=== PATIENT | male | born 1940 | race Caucasian/White ===

== ENCOUNTER 2017-09-22 09:10 | Inpatient (IN) | payer OTHER, MEDICARE ==
[2017-09-22] VITALS (8 sets, daily range): BP systolic 146–157; BP diastolic 85–102; PULSE 91–139; RESP 16–20; TEMP 97.8–99.7; O2SAT 96–99
[~2017-09-22] VITALS: Ht 177.8 cm; Wt 94.6 kg
[~2017-09-22 09:10] MED LIST: CALC250 PO; DOCU1CAP39 PO; NORC7.5T PO; TAB-TAB
[2017-09-22] MEDS ORDERED: SODIUM CHLOR 0.9% 1000 ML INJ 1,000 ML IV ONE (09:17)
--- NOTE | 2017-09-22 09:20 | PD ---
HPI Chief Complaint: Stroke alert Time Seen by Provider: 09:17 Travel History International Travel<30 days: No Contact w/Intl Traveler<30days: No History of Present Illness HPI 77-year-old male patient with history of alcohol use, presents to the ER brought in by EMS, stroke alert called in the field, apparently he had gone off of the sofa about 45 minutes prior to arrival, fall back down, and was unresponsive, and then had seizure-like activity according to family, and when EMS got there he was disoriented, not moving the right side, not directable, in atrial fibrillation. No history of previous stroke or atrial fibrillation in the past. He was not improving significantly on initial evaluation and they had called stroke alert due to right sided weakness initially and slowness to improve on scene. Modifying Factors: None Associated Signs & Symptoms: Stroke alert, right-sided weakness, altered mental status, questionable seizure-like activity Risk Factors: Alcohol use, elderly PFSH Past Medical History Cancer: No Cardiovascular Problems: No Endocrine: No Genitourinary: No Immune Disorder: No Musculoskeletal: No Neurologic: No Psychiatric: No Reproductive: No Respiratory: No Social History Alcohol Use: Yes ([place] [employer] DAILY) Tobacco Use: No Substance Use: No Allergies-Medications (Allergen,Severity, Reaction): Coded Allergies: codeine (Unverified Allergy, Mild, n/v, 01/30/17) Reported Meds & Prescriptions Reported Meds & Active Scripts Active Reported Oscal-D 250 MG /125 UNITS Tab (Calcium/Vitamin D) 250 Mg/125 Units Tab 1 Tab PO TID [place] 7.5/325 (Hydrocodone-Acetaminophen) 7.5 Mg/325 Mg Tab 1 Tab PO Q4-6 HOURS PRN Colace 100 Mg Cap (Docusate Sodium) 100 Mg Cap 100 Mg PO BID Multivitamin (Multivitamins) 1 Tab Tab Review of Systems ROS Limitations: Altered Mental Status Physical Exam Narrative GENERAL: Well-developed elderly white male patient currently in moderate distress. Arousable, disoriented, GCS 13 to 14. SKIN: Focused skin assessment warm/dry. HEAD: Atraumatic. Normocephalic. EYES: Pupils equal and round. No scleral icterus. No injection or drainage. ENT: No nasal bleeding or discharge. Mucous membranes pink and moist. Bruising of the tongue in a tooth like formation, suspected tongue biting. NECK: Trachea midline. No JVD. CARDIOVASCULAR: Regular rate and rhythm. No murmur appreciated. RESPIRATORY: No accessory muscle use. Clear to auscultation. Breath sounds equal bilaterally. GASTROINTESTINAL: Abdomen soft, non-tender, nondistended. Hepatic and splenic margins not palpable. MUSCULOSKELETAL: No obvious deformities. No clubbing. No cyanosis. No edema. Tenderness on palpation of the right elbow area. NEUROLOGICAL: Awake and disoriented. Face is symmetrical, slurred speech, not moving the right arm, but able to follow some directions, extraocular movements are intact, crossing his legs when asked to lift up his leg. PSYCHIATRIC: Disoriented; insight and judgment poor. Data Data Last Documented VS Vital Signs Date Time Temp Pulse Resp B/P (MAP) Pulse Ox O2 Delivery O2 Flow Rate FiO2 09/22/17 10:26 97 09/22/17 10:26 104 151/98 (115) 09/22/17 09:20 Room Air 09/22/17 09:20 2.00 09/22/17 09:13 98.3 19 Orders Orders Diet Npo (09/22/17 Breakfast) Activity Bed Rest (09/22/17 ) Electrocardiogram (09/22/17 ) I-Stat Profile (09/22/17 09:17) Prothrombin Time / Inr (Pt) (09/22/17 09:17) Act Partial Throm Time (Ptt) (09/22/17 09:17) Complete Blood Count With Diff (09/22/17 09:17) Fibrinogen (09/22/17 09:17) Creatine Kinase (Cpk) (09/22/17 09:17) Troponin I (09/22/17 09:17) Ua Includes Microscopic (09/22/17 09:17) Drug Screen, Random Urine (09/22/17 09:17) Type And Screen (09/22/17 09:17) Ct Brain W/O Iv Contrast(Rout) (09/22/17 ) Chest, Single Ap (09/22/17 ) Cta Brain W Iv Contrast W 3d (09/22/17 09:17) Cta Neck W Iv Contrast W 3d (09/22/17 09:17) Consult Neurology (09/22/17 ) Blood Glucose (09/22/17 09:17) Ecg Monitoring (09/22/17 09:17) Neuro Checks Q2HX12,Q4H (09/22/17 09:17) Nursing Bedside Swallow Assess .ONCE (09/22/17 09:17) Iv Access Insert/Monitor (09/22/17:17) NPO (09/22/17:17) Oximetry (09/22/17 09:17) Resp Oxygen Nc Stroke (09/22/17 ) Sodium Chlor 0.9% 1000 Ml Inj (Ns 1000 M (09/22/17 09:17) Cath For Specimen (09/22/17:17) Elbow, Limited (Ap&Lat) (09/22/17 09:24) Forearm (2vws) (09/22/17 09:24) Humerus (Min 2vws) (09/22/17 09:24) Aspirin Supp (Aspirin Supp) (09/22/17 09:45) Diltiazem Inj (Cardizem Inj) (09/22/17 09:45) Sodium Chloride 0.9% Flush (Ns Flush) (09/22/17 09:45) W[place]gren Sedimentation Rate (09/22/17 09:36) Rapid Plasma Regin (Rpr) W Ttr (09/22/17 09:36) Wilma Screen (09/22/17 09:36) Thyroid Stimulating Hormone (09/22/17 09:36) Free Thyroxine (T4) (09/22/17 09:36) Vitamin B1 (Thiamine) (09/22/17 09:36) Vitamin B12 (09/22/17 09:36) Urinalysis - C+S If Indicated (09/22/17 09:36) Methylmalonic Acid (Mma) (09/22/17 09:36) Ast (Sgot) (09/22/17 09:36) Alt (Sgpt) (09/22/17 09:36) Mri Brain W&W/O Contrast (09/22/17 09:36) Eeg Study (09/22/17 09:36) Echo 2d Comp With Doppler (09/22/17 09:36) Filling Hauler Weaving / Telemetry TAN.Q8H (09/22/17 09:36) ^ Seizure Precautions (09/22/17 09:36) Troponin I (09/22/17 09:36) [place] (09/22/17 09:36) Aspirin Ec (Ecotrin Ec) (09/22/17 11:00) Sodium Chlor 0.9% 1000 Ml Inj (Ns 1000 M (09/22/17 09:36) Lipid Profile (09/22/17 09:36) Consult Pt Eval & Treat (09/22/17 09:36) Scd&Teds Bilateral/Knee High TAN.QSHIFT (09/22/17 09:36) (Hub Use Only)Inp Phy Cons/Ref (09/22/17 ) Admit Order (Ed Use Only) (09/22/17 10:49) Labs Laboratory Tests Test 09/22/17 09:20 White Blood Count 9.4 TH/MM3 Red Blood Count 3.99 MIL/MM3 Hemoglobin 14.7 GM/DL Bedside Hemoglobin 14.6 G/DL Hematocrit 42.7 % Bedside Hematocrit 43.0 % Mean Corpuscular Volume 106.9 FL Mean Corpuscular Hemoglobin 36.7 PG Mean Corpuscular Hemoglobin Concent 34.4 % Red Cell Distribution Width 13.4 % Platelet Count 123 TH/MM3 Mean Platelet Volume 10.2 FL Neutrophils (%) (Auto) 81.5 % Lymphocytes (%) (Auto) 11.0 % Monocytes (%) (Auto) 7.1 % Eosinophils (%) (Auto) 0.0 % Basophils (%) (Auto) 0.4 % Neutrophils # (Auto) 7.7 TH/MM3 Lymphocytes # (Auto) 1.0 TH/MM3 Monocytes # (Auto) 0.7 TH/MM3 Eosinophils # (Auto) 0.0 TH/MM3 Basophils # (Auto) 0.0 TH/MM3 CBC Comment DIFF FINAL Differential Comment Prothrombin Time 10.7 SEC Prothromb Time International Ratio 1.1 RATIO Activated Partial Thromboplast Time 19.9 SEC Fibrinogen 229 mg/dL Bedside Sodium 136 MMOL/L Bedside Potassium 3.3 MMOL/L Bedside Chloride 97 MMOL/L Bedside Blood Urea Nitrogen 4 MG/DL Bedside Creatinine 0.8 MG/DL Bedside Glucose 206 MG/DL Total Creatine Kinase 212 U/L Troponin I LESS THAN 0.02 NG/ML MDM Medical Screen Exam Complete: Yes Emergency Medical Condition: Yes Medical Record Reviewed: Yes Differential Diagnosis CVA versus seizure/postictal versus metabolic issues versus ICH Narrative Course Patient was seen in the ER by Dr. Steiner before he went to CAT scan, and he thinks that this could have been a seizure rather than a stroke. Patient is in A. fib with RVR and he has suggested that we start the patient on heparin if the CAT scan is otherwise negative. In addition, symptoms are subsiding slowly in the ER and he is able to do more in the ER that he was with EMS. For patient 's new onset A. fib with RVR, had initially ordered Cardizem but was notified by nurse that we did not have supplies of Cardizem in the hospital, and metoprolol was instead ordered for this patient. At this point, case had been discussed with Dr. Rhoades to be admitted for further treatment. Stroke Alert NIHSS NIH Stroke Scale Result: 7 NIHSS Time Completed: 09:33 Thrombolytic Contraindications Contraindications Comment: Suspected seizure rather than a stroke. Diagnosis Diagnosis: Primary Impression: Atrial fibrillation with RVR Additional Impressions: New onset seizure Right humeral fracture Admitting Physician Requests: Admit Jenae Galeano MD Sep 22, 2017 09:20
[2017-09-22] MEDS ORDERED: SODIUM CHLOR 0.9% 1000 ML INJ 1,000 ML IV SCH (09:36)
[2017-09-22] MEDS ORDERED: DILTIAZEM HCL 25 MG/5 ML VIAL IV PUSH ONE (09:45)
[2017-09-22] MEDS ORDERED: ASPIRIN 300 MG SUPP RECTAL ONE (09:45)
[2017-09-22] MEDS ORDERED: SODIUM CHLORIDE 0.9% FLUSH 10 ML FLUSH IV FLUSH PRN ×2 (09:45→13:00)
[2017-09-22 09:46] LABS: AUTOMATED NEUTROPHIL # 7.7 TH/MM3 (1.8-7.7); BASOPHIL % 0.4 % (0.0-2.0); HEMATOCRIT 42.7 % (39.0-51.0); HEMOGLOBIN 14.7 GM/DL (13.0-17.0); MEAN CELL VOLUME 106.9 FL (80.0-100.0); MEAN CORPUSCULAR HEMOGLOBIN 36.7 PG (27.0-34.0); MEAN CORPUSCULAR HGB CONC 34.4 % (32.0-36.0); MEAN PLATELET VOLUME 10.2 FL (7.0-11.0); MONO % 7.1 % (0.0-8.0); MONOCYTE # 0.7 TH/MM3 (0-0.9); NEUT % 81.5 % (16.0-70.0); PLATELET COUNT 123 TH/MM3 (150-450); RED BLOOD COUNT 3.99 MIL/MM3 (4.50-5.90); RED CELL DISTRIBUTION WIDTH 13.4 % (11.6-17.2); WHITE BLOOD COUNT 9.4 TH/MM3 (4.0-11.0)
--- NOTE | 2017-09-22 09:48 | RADRPT ---
EXAM DATE/TIME: 09/22/2017 09:37 [facility] COMPARISON: No previous studies available for comparison. INDICATIONS : Stroke alert. Altered mental status. RADIATION DOSE: 56.35 CTDIvol (mGy) This report was called by Dr. Sandoval to Dr. Emanuel at 9: 44 AM MEDICAL HISTORY : Non-responsive. SURGICAL HISTORY : Non-responsive. ENCOUNTER: Initial ACUITY: 1 day PAIN SCALE: Non-responsive LOCATION: Bilateral head TECHNIQUE: Multiple contiguous axial images were obtained of the head. Using automated exposure control and adj ustment of the mA and/or kV according to patient size, radiation dose was kept as low as reasonably a chievable to obtain optimal diagnostic quality images. DICOM format image data is available electro nically for review and comparison. FINDINGS: CEREBRUM: There is diffuse white matter atrophic change. The ventricles demonstrate no evidence of effacement o r abnormal dilation.. No evidence of midline shift, mass lesion, hemorrhage or acute infarction. No extra-axial fluid collections are seen. POSTERIOR FOSSA: The cerebellum and brainstem are intact. The 4th ventricle is midline. The cerebellopontine angle i s unremarkable. EXTRACRANIAL: The visualized portion of the orbits is intact. SKULL: The calvaria is intact. No evidence of skull fracture. CONCLUSION: Diffuse white matter atrophic changes, somewhat greater than expected for the patient's age. No evide nce of acute abnormality.. Stefania Sandoval MD on September 22, 2017 at 9:42 Board Certified Radiologist. This report was verified electronically.
[2017-09-22 10:00] LABS: INTERNATIONAL NORMALIZED RATIO 1.1 RATIO; PROTHROMBIN TIME - PATIENT 10.7 SEC (9.8-11.6)
[2017-09-22 10:04] LABS: TROPONIN I LESS THAN 0.02 NG/ML (0.02-0.05)
--- NOTE | 2017-09-22 10:08 | MB ---
cc: Winston Steiner MD DATE: 09/22/2017 HISTORY OF PRESENT ILLNESS: This is a 77-year-old man who in 2013 had a left olecranon fracture. He has a history of traumatic head injury, hernia repair, hypercholesterolemia, atrial fibrillation, does not take any medications, history of alcohol use in the past, had a glass of whiskey this morning, fell off the sofa and was unresponsive, some seizure-like activity according to family although I am unable to get in touch with them on the phone now. He does not take any blood thinners, is on the atrial fibrillation. A stroke alert was called as I thought maybe he was not moving the right side well, although he is holding his right arm, appears to be in a lot of pain in the right elbow. REVIEW OF SYSTEMS: Unable to be obtained. ALLERGIES: HE IS ALLERGIC TO CODEINE. MEDICATIONS: He takes a multivitamin, colace, [place] and Os-Binu. SOCIAL HISTORY: He is a drinker, not a smoker. Lives with his . PHYSICAL EXAMINATION: VITAL SIGNS: Pulse is 139, blood pressure 157/102, afebrile, O2 saturations 97%. NECK: There were no carotid bruits. HEART: Regular rhythm. I did not tachycardic or murmur. NEUROLOGIC: The pupils are equal. Visual gray are full. He can count fingers bilaterally and there is no visual neglect. Face is symmetric with normal sensation. Tongue was midline, but he did bite his tongue, has a lot of bites and abrasions on the tongue, which are acute. He moves his left upper and bilateral lower extremity normally. He can make a good fist on the right upper extremity, but he has got a lot of pain in the right elbow, so unable to test it any further. DTRs are trace throughout. Toes were downgoing bilaterally. Pinprick is intact in all 4 extremities. He may be primarily German speaking. He could repeat for me and name my glasses and stick out his tongue and follow commands. His NIH stroke scale is 0 at this time. LABORATORY DATA: In 2013, he had a low white count to 3.4, hematocrit was 31. Current labs are pending. Coags have been normal in 2013. His creatinine and BMP here as I-stat is normal. Alcohol level is 406 in 2012. IMAGING STUDIES: His x-rays are still pending. He had a CT scan of his cervical spine in 2012 that showed some DJD C1-C2, C5-C6, C6-C7. No spinal stenosis. IMPRESSION AND PLAN: Probably a seizure, but his EKG does show atrial fibrillation, probably needs to be anticoagulated. We will check an EEG. MRI of the brain. For now, we will keep him on the stroke alert protocol and get a CT and CTA. There appeared to be some postictal state, according to the government contracts manager. MD JAVIER Carrillo/RODRI , 09:47 AM , 10:07 AM
--- NOTE | 2017-09-22 10:55 | RADRPT ---
EXAM DATE/TIME: 09/22/2017 10:16 [facility] COMPARISON: No previous studies available for comparison. INDICATIONS : Stroke alert. MEDICAL HISTORY : Non-responsive. SURGICAL HISTORY : Non-responsive. ENCOUNTER: Initial ACUITY: 1 day PAIN SCORE: 0/10 LOCATION: Bilateral chest FINDINGS: The lungs are hypoinflated but clear. Heart size is normal. Moderate tortuosity of the thoracic aorta . Pulmonary vasculature is normal. Osseous structures are intact. CONCLUSION: No acute disease. Stefania Sandoval MD on September 22, 2017 at 10:52 Board Certified Radiologist. This report was verified electronically.
[2017-09-22] MEDS ORDERED: ONDANSETRON HCL 4 MG/2 ML VIAL ONE (10:57)
--- NOTE | 2017-09-22 10:57 | RADRPT ---
EXAM DATE/TIME: 09/22/2017 10:33 [facility] COMPARISON: CHEST SINGLE AP, September 22, 2017, 10:16. INDICATIONS : Trauma. MEDICAL HISTORY : Non-responsive. SURGICAL HISTORY : Non-responsive. ENCOUNTER: Initial ACUITY: 1 day PAIN SCORE: Non-responsive. LOCATION: Right Humerus. FINDINGS: There appears to be a nondisplaced fracture involving the right humeral head at the level of the grea ter trochanter. The humeral head appears appropriately positioned with respect to the adjacent glenoi d. Degenerative changes identified within the imaged elbow. Bones are osteopenic. No additional fract ures are visualized. CONCLUSION: Nondisplaced fracture of the right humeral head at the level of the greater trochanter.. Stefania Sandoval MD on September 22, 2017 at 10:53 Board Certified Radiologist. This report was verified electronically.
[2017-09-22] MEDS ORDERED: ASPIRIN EC 325 MG TABEC PO SCH (11:00)
[2017-09-22] MEDS ORDERED: METOPROLOL TARTRATE 5 MG/5 ML VIAL IV PUSH ONE (11:00)
--- NOTE | 2017-09-22 11:10 | RADRPT ---
EXAM DATE/TIME: 09/22/2017 10:20 [facility] COMPARISON: No previous studies available for comparison. INDICATIONS : Trauma. MEDICAL HISTORY : Non-responsive. SURGICAL HISTORY : Non-responsive. ENCOUNTER: Initial ACUITY: 1 day PAIN SCORE: 10/10 LOCATION: Right Elbow. FINDINGS: 2 views of the elbow demonstrate degenerative change. No evidence of fracture. There is a well-cortic ated osseous structure identified along the volar aspect of the elbow joint consistent with a loose b vincenzo. The bones are osteopenic. Soft tissues are grossly unremarkable. CONCLUSION: No evidence of fracture. Stefania Sandoval MD on September 22, 2017 at 11:06 Board Certified Radiologist. This report was verified electronically.
--- NOTE | 2017-09-22 11:11 | HHI.HP ---
[facility] Unknown Admission Diagnosis New onset A. fib with RVR/stroke alert Diagnoses: Travel History International Travel<30 Days: No Contact w/Intl Traveler <30 Da: No Traveled to Known Affected Are: No History of Present Illness 77 year old right-handed male with history of alcohol abuse presented to the ER via EMS after his found him unresponsive on the living room floor this morning. History is limited from the patient as he is a poor historian and doesn't recall today's events. Spoke with , Brenda Samaniego, on the phone who was able to provide additional history. Per his , she was in her bedroom and recalls he was talking but couldn't understand what he was saying. She states when she went out into the living room after about thirty minutes he was on the ground unresponsive and was bleeding from his mouth. She states he was not incontinent of urine or feces. He came to when EMS arrived but she states he was very confused and would not answer questions or talk. He opened his eyes but did not follow commands. Per EMS, the patient did not move the right side of his body and therefore a stroke alert was called in the field. His states she did not witness any convulsions as she did not see the actual event. She is unaware if the patient has ever had a seizure but the patient informs me that he has had one a "few years ago" that he believes was related to drinking too much alcohol. He states he drinks "two cups" of whiskey a day as well as a "couple beers." He denies abruptly discontinuing but his thinks he wasn't drinking as much in the past two days. She also reports that the patient had two episodes of nonbloody emesis this morning prior to the events but has otherwise been in his normal state of health. He states he hasn' t seen a doctor in several years and denies being diagnosed with any medical problems. He does not take any medications on a regular basis. He denies headache, slurred speech, diplopia, loss of balance, dizziness, paresthesias, weakness, or difficulty reading. His only complaint is pain in his right elbow that he noticed in the hospital. He does not recall falling or injuring it. Pain is exacerbated with any movement of his right arm and with direct pressure over his elbow. He also endorses feeling shaky. On admission, he was found to be in atrial fibrillation with RVR and states he has never had any cardiac conditions. He denies chest pain, shortness of breath, or palpitations. He reports in the past he has had blood in his stool when he drinks heavily; he cannot recall ever vomiting blood. He has never had a colonoscopy. Review of Systems ROS Limitations: Poor Historian Constitutional: DENIES: Fever, Chills, Dizziness Eyes: DENIES: Blurred vision, Diplopia, Vision loss Ears, nose, mouth, throat: DENIES: Hearing loss, Throat pain Respiratory: DENIES: Cough, Wheezing, Shortness of breath Cardiovascular: DENIES: Chest pain, Palpitations, Syncope, Lower Extremity Edema Gastrointestinal: COMPLAINS OF: Bloody stools, Vomiting, DENIES: Abdominal pain , Black stools, Nausea Genitourinary: DENIES: Dysuria Musculoskeletal: DENIES: Neck pain Integumentary: DENIES: Rash Hematologic/lymphatic: DENIES: Bruising Neurologic: COMPLAINS OF: Seizures, DENIES: Abnormal gait, Headache, Localized weakness, Paresthesias Psychiatric: COMPLAINS OF: Confusion Past Family Social History Past Medical History Alcohol abuse Past Surgical History Bilateral inguinal hernia L olecranon ORIF Reported Medications Multivitamin Allergies: Coded Allergies: codeine (Unverified Allergy, Mild, n/v, 01/30/17) Active Ordered Medications Aspirin (Aspirin Supp) 300 mg ONCE ONCE RECTAL Last administered on 09/22/17at 11 :05; Admin Dose 300 MG; Start 09/22/17 at 09:45; Stop 09/22/17 at 09:46; Status DC Aspirin (Ecotrin Ec) 325 mg DAILY PO; Start 09/22/17 at 11:00 Diltiazem HCl (Cardizem Inj) 22 mg BOLUS ONCE IV PUSH; Start 09/22/17 at 09:45; Stop 09/22/17 at 10:55; Status DC Enoxaparin Sodium (Lovenox Inj) 40 mg Q24H SQ; Start 09/22/17 at 16:00 Flumazenil (Romazicon Inj) 0.2 mg Q1M PRN IV PUSH; Start 09/22/17 at 11:15 Lorazepam (Ativan Inj) 1 mg Q4H PRN IV PUSH; Start 09/22/17 at 11:15 Lorazepam (Ativan Inj) 2 mg Q15M PRN IV PUSH; Start 09/22/17 at 11:15 Lorazepam (Ativan Inj) 2 mg Q1H PRN IV PUSH; Start 09/22/17 at 11:15 Lorazepam (Ativan Inj) 2 mg Q2H PRN IV PUSH; Start 09/22/17 at 11:15 Lorazepam (Ativan) 1 mg Q4H PRN PO; Start 09/22/17 at 11:15 Lorazepam (Ativan) 2 mg Q2H PRN PO; Start 09/22/17 at 11:15 Metoprolol Tartrate (Lopressor Inj) 5 mg ONCE ONCE IV PUSH Last administered on 09/22/17at 11:07; Admin Dose 5 MG; Start 09/22/17 at 11:00; Stop 09/22/17 at 11: 01; Status DC Multivitamins 10 ml/Folic Acid 1 mg/Sodium Chloride 510.2 ml @ 125 mls/hr Q24H IV; Start 09/22/17 at 14:00; Stop 09/27/17 at 13:59 Ondansetron HCl (Zofran Inj) 4 mg STK-MED ONCE .ROUTE Last administered on at 11:06; Admin Dose 4 MG; Start 09/22/17 at 10:57; Stop 09/22/17 at 10:58; Status DC Sodium Chloride 1,000 ml @ 70 mls/hr [id number] IV; Start 09/22/17 at 12:00 Sodium Chloride 1,000 ml @ 70 mls/hr [id number] ONCE IV Last administered on at 11:05; Admin Dose 70 MLS/HR; Start 09/22/17 at 09:17; Stop 09/22/17 at 11:24 ; Status DC Sodium Chloride 1,000 ml @ 75 mls/hr [id number] IV; Start 09/22/17 at 09:36; Stop 09/22/17 at 11:23; Status DC Sodium Chloride (NS Flush) 2 ml UNSCH PRN IV FLUSH Last administered on at 11:09; Admin Dose 2 ML; Start 09/22/17 at 09:45 Thiamine HCl 100 mg/Sodium Chloride 101 ml @ 100 mls/hr Q24H IV; Start 09/22/17 at 13:00; Stop 09/25/17 at 12:59 Family History Parents at old age, unknown causes Social History Lives with his and son From [facility] Retired Denies tobacco or illicit drug use Daily EtOH use - reports "two cups" of whiskey a day and a "couple beers" Physical Exam Vital Signs Vital Signs Date Time Temp Pulse Resp B/P (MAP) Pulse Ox O2 Delivery O2 Flow Rate FiO2 09/22/17 10:26 97 09/22/17 10:26 104 151/98 (115) 09/22/17 09:20 100 Room Air 09/22/17 09:20 97 2.00 09/22/17 09:20 97 Nasal Cannula 2.00 09/22/17 09:20 139 157/102 (120) 97 Nasal Cannula 09/22/17 09:13 98.3 108 19 157/102 (120) Physical Exam GENERAL: Well-nourished, well-developed male supine in bed in no apparent distress. SKIN: Two ~1cm, fleshy pedunculated skin lesions on face. Lower lip and chin with john discoloration and thickened skin. HEENT: Atraumatic. Normocephalic. No temporal or scalp tenderness. Pupils about 2-3 mm bilaterally and reactive to light. EOMI without nystagmus. No scleral icterus. Mild bilateral conjunctival injection. Nose without bleeding, purulent drainage or septal hematoma. Throat without erythema, tonsillar hypertrophy or exudate. Poor dentition. Multiple abrasions and bites on tongue with blood in the mouth. Uvula midline. Airway patent. NECK: Trachea midline. No JVD or lymphadenopathy. Supple, nontender, no meningeal signs. CARDIOVASCULAR: Tachycardic with an irregularly irregular rhythm. No appreciable murmurs. 2+ distal pulses. RESPIRATORY: Clear to auscultation. Breath sounds equal bilaterally. No wheezes , rales, or rhonchi. GASTROINTESTINAL: Abdomen soft, nontender, nondistended. No hepatosplenomegaly or palpable masses. No guarding. MUSCULOSKELETAL: Extremities without clubbing, cyanosis, or edema. Guarding RUE. R elbow with no gross abnormalities; olecranon tender to palpation. No tenderness of shoulder, arm, or forearm. Bilateral venous stasis changes in his feet and ankles. No calf tenderness. Negative Homans sign bilaterally. NEUROLOGICAL: Awake and alert. Cranial nerves II through XII intact. No facial droop and sensation intact. Motor and sensory grossly within normal limits with the exception of his RUE which appears to be limited secondary to pain though encoding clerk strength is strong. B/L LE strength symmetric. Negative Babinski bilaterally. Normal speech. Laboratory Laboratory Tests Test 09/22/17 09:20 White Blood Count 9.4 Red Blood Count 3.99 Hemoglobin 14.7 Bedside Hemoglobin 14.6 Hematocrit 42.7 Bedside Hematocrit 43.0 Mean Corpuscular Volume 106.9 Mean Corpuscular Hemoglobin 36.7 Mean Corpuscular Hemoglobin Concent 34.4 Red Cell Distribution Width 13.4 Platelet Count 123 Mean Platelet Volume 10.2 Neutrophils (%) (Auto) 81.5 Lymphocytes (%) (Auto) 11.0 Monocytes (%) (Auto) 7.1 Eosinophils (%) (Auto) 0.0 Basophils (%) (Auto) 0.4 Neutrophils # (Auto) 7.7 Lymphocytes # (Auto) 1.0 Monocytes # (Auto) 0.7 Eosinophils # (Auto) 0.0 Basophils # (Auto) 0.0 CBC Comment DIFF FINAL Differential Comment Prothrombin Time 10.7 Prothromb Time International Ratio 1.1 Activated Partial Thromboplast Time 19.9 Fibrinogen 229 Bedside Sodium 136 Bedside Potassium 3.3 Bedside Chloride 97 Bedside Blood Urea Nitrogen 4 Bedside Creatinine 0.8 Bedside Glucose 206 Total Creatine Kinase 212 Troponin I LESS THAN 0.02 Result Diagram: 09/22/17919 Imaging Radius/Ulna X-Ray 09/22/17923 Signed Impressions: Service Date/Time: Friday, September 22, 2017 10:23 - CONCLUSION: Severe degenerative changes and osteopenia. No visualized fracture.. Stefania Sandoval MD Humerus X-Ray 09/22/17923 Signed Impressions: Service Date/Time: Friday, September 22, 2017 10:33 - CONCLUSION: Nondisplaced fracture of the right humeral head at the level of the greater trochanter.. Stefania Sandoval MD Elbow X-Ray 09/22/17923 Signed Impressions: Service Date/Time: Friday, September 22, 2017 10:20 - CONCLUSION: No evidence of fracture. Stefania Sandoval MD Head CT 09/22/17 0000 Signed Impressions: Service Date/Time: Friday, September 22, 2017 09:37 - CONCLUSION: Diffuse white matter atrophic changes, somewhat greater than expected for the patient's age. No evidence of acute abnormality.. Stefania Sandoval MD Chest X-Ray 09/22/17 0000 Signed Impressions: Service Date/Time: Friday, September 22, 2017 10:16 - CONCLUSION: No acute disease. Stefania Sandoval MD Caprini VTE Risk Assessment Caprini VTE Risk Assessment: Mod/High Risk (score >= 2) Caprini Risk Assessment Model Point Value = 1 Point Value = 2 Point Value = 3 Point Value = 5 Age 41-60 Minor surgery BMI > 25 kg/m2 Swollen legs Varicose veins or History of unexplained or recurrent spontaneous Oral contraceptives or hormone replacement Sepsis (< 1 month) Serious lung disease, including pneumonia (< 1 month) Abnormal pulmonary function Acute myocardial infarction Congestive heart failure (< 1 month) History of inflammatory bowel disease Medical patient at bed rest Age 61-74 Arthroscopic surgery Major open surgery (> 45 min) Laparoscopic surgery (> 45 min) Malignancy Confined to bed (> 72 hours) Immobilizing plaster cast Central venous access Age >= 75 History of VTE Family history of VTE Factor V Leiden Prothrombin [id number] Lupus anticoagulant Anticardiolipin antibodies Elevated serum homocysteine Heparin-induced thrombocytopenia Other congenital or acquired thrombophilia Stroke (< 1 month) Elective arthroplasty Hip, pelvis, or leg fracture Acute spinal cord injury (< 1 month) Prophylaxis Regimen Total Risk Factor Score Risk Level Prophylaxis Regimen 0-1 Low Early ambulation 2 Moderate Order ONE of the following: *Sequential Compression Device (SCD) *Heparin 5000 units SQ BID 3-4 Higher Order ONE of the following medications: *Heparin 5000 units SQ TID *Enoxaparin/Lovenox 40 mg SQ daily (WT < 150 kg, CrCl > 30 mL/min) *Enoxaparin/Lovenox 30 mg SQ daily (WT < 150 kg, CrCl > 10-29 mL/min) *Enoxaparin/Lovenox 30 mg SQ BID (WT < 150 kg, CrCl > 30 mL/min) AND/OR *Sequential Compression Device (SCD) 5 or more Highest Order ONE of the following medications: *Heparin 5000 units SQ TID (Preferred with Epidurals) *Enoxaparin/Lovenox 40 mg SQ daily (WT < 150 kg, CrCl > 30 mL/min) *Enoxaparin/Lovenox 30 mg SQ daily (WT < 150 kg, CrCl > 10-29 mL/min) *Enoxaparin/Lovenox 30 mg SQ BID (WT < 150 kg, CrCl > 30 mL/min) AND *Sequential Compression Device (SCD) Assessment and Plan Problem List: (1) Altered mental status ICD Code: R41.82 - Altered mental status, unspecified Status: Acute (2) Atrial fibrillation with RVR ICD Code: I48.91 - Unspecified atrial fibrillation Status: Acute (3) Right humeral fracture ICD Code: S42.301A - Unspecified fracture of shaft of humerus, right arm, initial encounter for closed fracture Status: Acute (4) Alcohol abuse ICD Code: F10.10 - Alcohol abuse, uncomplicated Status: Chronic Assessment and Plan 77 YOWM w/ history of alcohol abuse brought to the ER via EMS after being found down in his living room by his . Patient post-ictal on EMS arrival and not spontaneously moving right side therefore a stroke alert was called on the field. On arrival, he was found to be in atrial fibrillation with RVR. 1. Altered mental status - CT with white matter atrophy - Seizure vs. CVA/TIA vs. metabolic encephalopathy vs. infection - Presentation consistent with a seizure given post-ictal state and tongue abrasions/bites; ?EtOH seizure - Neurology consulted, appreciate eval and reccs - Resume stroke protocol neuro checks, HOB flat, permissive HTN, serial troponins - PT/ST/OT - CTA/MRI/EEG ordered - Seizure precautions 2. Atrial fibrillation with RVR - Reviewed EKG - TSH WNL and no severe electrolyte derangement - Check magnesium - Hemodynamically stable - Given metoprolol IV x 1 in the ED - Start PO metoprolol - Consult cardiology since new onset - Order 2D echo - CHADSVASc score 2; patient an anticoagulation candidate but possible history of GI bleed? - Telemetry 3. R nondisplaced humeral head fracture - Imaging reviewed by me and confirmed with radiology report - [facility] for sling - Ice - Pain control - Likely nonoperative but will consult orthopedic surgery for eval 4. Alcohol abuse - Check EtOH level and LFTs - Macrocytosis and thrombocytopenia consistent with chronic EtOH use - [facility] protocol - Rally pack - Seizure precautions 5. Hypertension - Start metoprolol 25 mg BID - Vasotec PRN 6. Hyperglycemia - Check A1c DVT prophylaxis: Lovenox SQ Code Status FULL Discussed Condition With Patient and his Physician Certification 2 Midnight Certification Type: Admission for Inpatient Services Order for Inpatient Services The services are ordered in accordance with Medicare regulations or non- Medicare payer requirements, as applicable. In the case of services not specified as inpatient-only, they are appropriately provided as inpatient services in accordance with the 2-midnight benchmark. Estimated LOS (days): 3 3 days is the estimated time the patient will need to remain in the hospital, assuming treatment plan goals are met and no additional complications. Post-Hospital Plan: Not yet determined Sowmya Grimaldo MD Sep 22, 2017 11:11
[2017-09-22] MEDS ORDERED: LORazepam 2 MG/ML VIAL IV PUSH PRN ×5 (11:15→13:45)
[2017-09-22] MEDS ORDERED: LORazepam 2 MG TAB PO PRN (11:15)
[2017-09-22] MEDS ORDERED: FLUMAZENIL 0.5 MG/5 ML VIAL IV PUSH PRN (11:15)
[2017-09-22] MEDS ORDERED: LORazepam 1 MG TAB PO PRN (11:15)
--- NOTE | 2017-09-22 11:18 | RADRPT ---
EXAM DATE/TIME: 09/22/2017 10:23 [facility] COMPARISON: No previous studies available for comparison. INDICATIONS : Trauma. MEDICAL HISTORY : Non-responsive. SURGICAL HISTORY : Non-responsive. ENCOUNTER: Initial ACUITY: 1 day PAIN SCORE: Non-responsive. LOCATION: Right Forearm. FINDINGS: The osseous structures demonstrate significant osteopenia. There are severe degenerative changes iden tified within the elbow with a calcified loose body identified in the volar aspect of the joint. No v isualized fracture. Soft tissues are significant for atherosclerosis. No joint effusion is visualized . CONCLUSION: Severe degenerative changes and osteopenia. No visualized fracture.. Stefania Sandoval MD on September 22, 2017 at 11:14 Board Certified Radiologist. This report was verified electronically.
[2017-09-22] MEDS ORDERED: GADODIAMIDE PF 287 MG/ML 20 ML VIAL (for RAD MRI) IVCONTRAST ONE (12:46)
--- NOTE | 2017-09-22 12:55 | RADRPT ---
EXAM DATE/TIME: 09/22/2017 12:01 [facility] COMPARISON: No previous studies available for comparison. INDICATIONS : Stroke alert, right-sided weakness, altered mental status. CONTRAST: 17 cc Omniscan (gadodiamide) IV MEDICAL HISTORY : Hypercholesterolemia. SURGICAL HISTORY : Inguinal hernia repair. ORIF elbow. ENCOUNTER: Initial ACUITY: 1 day PAIN SCORE: 0/10 LOCATION: cranial TECHNIQUE: Multiplanar, multisequence MRI of the brain was performed both prior to and following the administrat ion of paramagnetic contrast. FINDINGS: CEREBRUM: There is diffuse extensive white matter atrophic changes. The ventricles are normal in size given the degree of white matter atrophy. WHITE MATTER: Mild periventricular white matter hyperintensity. POSTERIOR FOSSA: The cerebellum and brainstem are intact. The 4th ventricle is midline. The cerebellopontine angle is unremarkable. The cerebellar tonsils are normal in position. DIFFUSION IMAGING: No focal areas of restricted diffusion are seen. No evidence of acute infarction. EXTRACRANIAL: The visualized portions of the orbits and paranasal sinuses are unremarkable. POST-CONTRAST: No abnormal areas of parenchymal or dural enhancement. No evidence of blood-brain barrier breakdown. CONCLUSION: No evidence of acute intracranial abnormality. There is extensive white matter atrophic change, great er than expected for the patient's age.. Stefania Sandoval MD on September 22, 2017 at 12:50 Board Certified Radiologist. This report was verified electronically.
[2017-09-22] MEDS ORDERED: BISACODYL 10 MG SUPP RECTAL PRN (13:00)
[2017-09-22] MEDS ORDERED: SENNOSIDES 8.6 MG TAB PO PRN (13:00)
[2017-09-22] MEDS ORDERED: ONDANSETRON HCL 4 MG/2 ML VIAL IVP PRN (13:00)
[2017-09-22] MEDS ORDERED: MORPHINE SULFATE 2 MG/ML SYRINGE IV PUSH PRN (13:00)
[2017-09-22] MEDS ORDERED: NALOXONE HCL 0.4 MG/ML AMP IV PUSH PRN (13:00)
[2017-09-22] MEDS ORDERED: LACTULOSE SYRUP 20 GM/30 ML CUP PO PRN (13:00)
[2017-09-22] MEDS ORDERED: MAGNESIUM HYDROXIDE SUSP 30 ML CUP PO PRN (13:00)
[2017-09-22] MEDS ORDERED: ENALAPRILAT 1.25 MG/ML VIAL IV PUSH PRN (13:00)
[2017-09-22] MEDS ORDERED: ACETAMINOPHEN 325 MG TAB PO PRN (13:00)
[2017-09-22] MEDS: THIAMINE INJ 100 MG in SODIUM CHLORIDE 0.9% INJ 100 ML IV SCH (13:12)
[2017-09-22] MEDS: MULTIVITAMIN INJ 10 ML, FOLIC ACID INJ 1 MG in SODIUM CHLORID 0.9% 500 ML INJ 500 ML IV SCH (13:12)
[2017-09-22 13:20] LABS: MAGNESIUM 1.6 MG/DL (1.5-2.5)
[2017-09-22 13:26] LABS: BILIRUBIN, URINE NEG (NEG); BLOOD, URINE SMALL (NEG); GLUCOSE,URINE 300 mg/dL (NEG); HYALINE CAST, URINE 2 /lpf (RARE); KETONE, URINE 40 mg/dL (NEG); MUCUS URINE FEW /lpf (OCC); NITRITE,URINE NEG (NEG); PH, URINE 6.5 (5.0-8.5); URINE COLOR LIGHT-YELLOW (YELLW/STRAW); URINE LEUKOCYTE ESTERASE NEG (NEG)
[2017-09-22 13:41] LABS: CHOLESTEROL/ HDL RATIO 1.49 RATIO; FREE T4 0.94 NG/DL (0.76-1.46); HDL CHOLESTEROL 175.4 MG/DL (40.0-60.0)
[2017-09-22] MEDS: SODIUM CHLOR 0.9% 1000 ML INJ 1,000 ML IV SCH (14:37)
[2017-09-22] MEDS: METOPROLOL TARTRATE 25 MG TAB PO SCH ×2 (14:37→21:44)
--- NOTE | 2017-09-22 15:39 | RADRPT ---
EXAM DATE/TIME: 09/22/2017 14:38 [facility] COMPARISON: No previous studies available for comparison. INDICATIONS : Patient complains of right shoulder pain status post fall. MEDICAL HISTORY : None. SURGICAL HISTORY : None. ENCOUNTER: Initial ACUITY: 1 day PAIN SCORE: Non-responsive. LOCATION: Right Shoulder FINDINGS: Two view examination of the right shoulder demonstrates a comminuted fracture through the surgical ne ck of the right humerus. The humeral head remains within the glenoid fossa. CONCLUSION: 1. Comminuted fracture involving the surgical neck of the right humerus 2. No evidence of dislocation. 1. Marc Blakely MD on September 22, 2017 at 15:36 Board Certified Radiologist. This report was verified electronically.
[2017-09-22] MEDS: ENOXAPARIN SODIUM 40 MG/0.4 ML SYRINGE SQ SCH (16:08)
--- NOTE | 2017-09-22 16:41 | RADRPT ---
EXAM DATE/TIME: 09/22/2017 15:09 [facility] COMPARISON: No previous studies available for comparison. INDICATIONS : Elevated labs. MEDICAL HISTORY : Vomiting. Melena. Confusion. Seizures. Afib. SURGICAL HISTORY : None. ENCOUNTER: Initial ACUITY: 1 day PAIN SCORE: 0/10 LOCATION: Abdomen. MEASUREMENTS: LIVER: 14.3 cm length COMMON DUCT: 6 mm RIGHT KIDNEY: 9.8 x 5.4 x 5.4 cm SPLEEN: 9.5 cm length FINDINGS: LIVER: Normal echotexture without focal lesion or ductal dilatation. COMMON DUCT: No intraluminal mass or stone visualized. GALLBLADDER: There is a 0.8 cm stones in the gallbladder neck. The gallbladder wall is upper limits of normal toña uring 3 mm. Fluid around the gallbladder is not seen. PANCREAS: The pancreas is obscured by overlying bowel gas. RIGHT KIDNEY: No hydronephrosis, stone or mass. SPLEEN: No focal lesion. CONCLUSION: Gallstone. Tony Recinos MD on September 22, 2017 at 16:37 Board Certified Radiologist. This report was verified electronically.
--- NOTE | 2017-09-22 20:26 | MB ---
cc: Jose Dixon DO DATE: 09/22/2017 REASON FOR CONSULTATION: New onset atrial fibrillation with rapid ventricular response. HISTORY OF PRESENT ILLNESS: Alexander Samaniego is a 77-year-old male who presented to [facility] Emergency Room on 09/22/2017 as his found him unresponsive on the living room floor this morning. The patient is a poor historian and speaks mostly [place]. History is taken from the chart as Dr. Rhoades spoke to the patient's to provide additional history. Apparently, the patient was out on the couch and the was in the bedroom and she could hear him talking but could not understand what he was saying. When he went out to the living room, he was on the ground unresponsive and bleeding from his mouth. Apparently he came to when EMS arrived, but she states he was very confused and would not answer questions or talk. He opened his eyes, but did not follow commands. As he was not moving the right side of his body a stroke alert was called in the field. Apparently, the patient had a seizure a number of years ago and believes that it was related to drinking too much alcohol. Upon arrival, he was found to be in atrial fibrillation with rapid ventricular response and per the , this is a new diagnosis for him. In seeing him, he appears to be somewhat confused and agitated. PAST MEDICAL HISTORY: 1. Alcohol abuse. 2. New onset atrial fibrillation with rapid ventricular response. PAST SURGICAL HISTORY: 1. Bilateral inguinal hernia. 2. Left olecranon ORIF. ALLERGIES: CODEINE. MEDICATIONS: 1. [place] 7.5/325 every 4-6 hours as needed for pain. 2. Calcium/vitamin D. 3. Colace 100 mg b.i.d. 4. Multivitamin daily. FAMILY HISTORY: Parents at old age from unknown causes. SOCIAL HISTORY: The patient is from [facility]. He denies tobacco or illicit drug abuse. He reports daily drinking with 2 cups of whiskey and a couple of beers. REVIEW OF SYSTEMS: Fourteen systems were reviewed including osteopathic. Pertinent positives and negatives above, otherwise negative. PHYSICAL EXAMINATION: VITAL SIGNS: Temperature 98.3, heart rate 99, blood pressure 152/99, respirations 19, pulse oximetry 98% on room air. GENERAL: The patient appears well in no acute distress, alert and awake. HEENT: Extraocular muscles intact. Mucous membranes moist. NECK: Supple. No JVD at 45 degrees. No carotid bruits heard bilaterally. Carotid upstroke is brisk in nature. HEART: Irregularly irregular. Positive first and second heart sounds. No noted murmurs, gallops or rubs. LUNGS: Clear to auscultation bilaterally. No wheezes, rales or rhonchi. ABDOMEN: Soft, nontender, nondistended. No organomegaly noted. EXTREMITIES: Show no clubbing, cyanosis or edema. Femoral and distal pulses intact. NEUROLOGIC: No focal deficits. SKIN: Warm, dry and intact. OSTEOPATHIC: No kyphoscoliosis, lordosis or paraspinal tender points. LABORATORY DATA: Hemoglobin 14.7, hematocrit 42.7, platelets 123. Potassium 3.3, BUN 4, creatinine 0.89. Troponin less than 0.02. Electrocardiogram (09/22/2017 at 0921) atrial fibrillation with rapid ventricular response, nonspecific ST-T wave changes. IMPRESSIONS: 1. Altered mental status, possibly due to seizure. 2. Alcohol abuse, drinking two cups of whiskey a day and a couple of beers. 3. New onset atrial fibrillation with rapid ventricular response, CHADS-VASc score equals 2 (age, hypertension). 4. Undiagnosed hypertension. 5. Right humeral fracture. RECOMMENDATIONS: 1. Mr. Samaniego appears to have presented as a stroke alert but possibly had seizure-like activity and was postictal per EMS. This will be further evaluated by neurology. 2. He was also found to be in atrial fibrillation with rapid ventricular response. We will attempt to place him on low-dose metoprolol tartrate to further control his heart rate, as well as his blood pressure. 3. We will check a 2D echo to look at his overall left ventricular function, cardiac structure and possible valvulopathies. 4. He may need further medications to control his blood pressure. 5. Atrial fibrillation may also be due to his overall drinking habits and he should decrease this as possible. 6. He has a CHADS-VASc score of 2 but overall I do not believe that he would be a great anticoagulation candidate, especially if there is new onset seizures and the possibility of trauma (such as this event), as well as the patient states that he has seen blood in his stool whenever he heavily drinks and due to his overall drinking habits and the possibility of varices in the future. At most, I would place the patient on aspirin 81 mg daily. If at anytime he changes his habits, this can be reconsidered. 7. Further recommendations will be made based on the hospital course. Thank you for allowing me to see Alexander Samaniego. If there are any questions, please do not hesitate to call. Jose Dixon DO VGP/rt , 05:21 PM , 08:25 PM MTDD
[2017-09-22] MEDS: DOCUSATE SODIUM 50 MG/SENNA 8.6 MG TAB PO SCH (21:00)
[2017-09-22] MEDS: SODIUM CHLORIDE 0.9% FLUSH 10 ML FLUSH IV FLUSH SCH (21:00)
[2017-09-23] VITALS (8 sets, daily range): BP systolic 134–184; BP diastolic 67–82; PULSE 89–108; RESP 16–20; TEMP 97.6–100.6; O2SAT 95–100
[2017-09-23] MEDS: SODIUM CHLOR 0.9% 1000 ML INJ 1,000 ML IV SCH ×2 (02:10→16:36)
[2017-09-23] MEDS: DOCUSATE SODIUM 50 MG/SENNA 8.6 MG TAB PO SCH ×2 (07:57→21:48)
[2017-09-23] MEDS: METOPROLOL TARTRATE 25 MG TAB PO SCH ×3 (07:58→17:33)
[2017-09-23] MEDS: SODIUM CHLORIDE 0.9% FLUSH 10 ML FLUSH IV FLUSH SCH ×2 (07:58→21:00)
[2017-09-23] MEDS: ASPIRIN 81 MG CHEW TAB CHEW SCH (07:58)
--- NOTE | 2017-09-23 08:26 | HHI.PR ---
Subjective Remarks Patient seen and examined this morning. Vitals are stable and the patient is overall afebrile. Reports right shoulder pain. Ate his breakfast without difficulties. Slightly tremulous. Per nurse no overnight events. Evaluated by ortho this am. Objective Vital Signs Date Time Temp Pulse Resp B/P (MAP) Pulse Ox O2 Delivery O2 Flow Rate FiO2 09/23/17 04:00 97.6 98 16 142/82 (102) 99 09/23/17 00:00 97.8 98 18 140/82 (101) 98 09/22/17 20:00 97.8 101 16 146/85 (105) 96 09/22/17 17:42 99.7 91 20 146/93 (110) 99 09/22/17 17:04 99 19 152/99 (116) 98 Room Air 09/22/17 13:53 148/92 (110) 09/22/17 11:28 102 152/101 (118) 09/22/17 10:26 97 09/22/17 10:26 104 151/98 (115) 09/22/17 09:20 100 Room Air 09/22/17 09:20 97 2.00 09/22/17 09:20 97 Nasal Cannula 2.00 09/22/17 09:20 139 157/102 (120) 97 Nasal Cannula 09/22/17 09:13 98.3 108 19 157/102 (120) I/O 09/22/17 09/22/17 09/22/17 09/23/17 09/23/17 09/23/17 07:00 15:00 23:00 07:00 15:00 23:00 # Voids 2 Result Diagram: 09/22/17919 Imaging Last Impressions Brain MRI 09/22/17935 Signed Impressions: Service Date/Time: Friday, September 22, 2017 12:01 - CONCLUSION: No evidence of acute intracranial abnormality. There is extensive white matter atrophic change , greater than expected for the patient's age.. Stefania Sandoval MD Radius/Ulna X-Ray 09/22/17923 Signed Impressions: Service Date/Time: Friday, September 22, 2017 10:23 - CONCLUSION: Severe degenerative changes and osteopenia. No visualized fracture.. Stefania Sandoval MD Humerus X-Ray 09/22/17923 Signed Impressions: Service Date/Time: Friday, September 22, 2017 10:33 - CONCLUSION: Nondisplaced fracture of the right humeral head at the level of the greater trochanter.. Stefania Sandoval MD Elbow X-Ray 09/22/1724 Signed Impressions: Service Date/Time: Friday, September 22, 2017 10:20 - CONCLUSION: No evidence of fracture. Stefania Sandoval MD Shoulder X-Ray 09/22/17 0000 Signed Impressions: Service Date/Time: Friday, September 22, 2017 14:38 - CONCLUSION: 1. Comminuted fracture involving the surgical neck of the right humerus 2. No evidence of dislocation. 1. Marc Blakely MD Liver Ultrasound 09/22/17 0000 Signed Impressions: Service Date/Time: Friday, September 22, 2017 15:09 - CONCLUSION: Gallstone. Tony Recinos MD Head CT 09/22/17 0000 Signed Impressions: Service Date/Time: Friday, September 22, 2017 09:37 - CONCLUSION: Diffuse white matter atrophic changes, somewhat greater than expected for the patient's age. No evidence of acute abnormality.. Stefania Sandoval MD Chest X-Ray 09/22/17 0000 Signed Impressions: Service Date/Time: Friday, September 22, 2017 10:16 - CONCLUSION: No acute disease. Stefania Sandoval MD Objective Remarks GENERAL: WN, WD elderly man sitting up in bed SKIN: Warm and dry. Right arm ecchymosis. bruising also noted on chin, tongue with multiple abrasians, blood inbetween teeth HEENT: Pupils equal and round. MMM. NECK: Supple no tender LAD or JVD. HEART: Normal rate, irregularly irregular. LUNGS: CTAB without wheezes or crackles. ABDOMEN: Soft, NT, ND. EXTREMITIES: +right shoulder pain. Moves both lower extremities without difficulties. NEURO: Awake and alert. left UE in restraint. PSYCH: Appropriate mood and affect. A/P Problem List: (1) Right humeral fracture ICD Code: S42.301A - Unspecified fracture of shaft of humerus, right arm, initial encounter for closed fracture Status: Acute (2) New onset seizure ICD Code: R56.9 - Unspecified convulsions Status: Acute (3) Atrial fibrillation with RVR ICD Code: I48.91 - Unspecified atrial fibrillation Status: Acute (4) Alcohol abuse ICD Code: F10.10 - Alcohol abuse, uncomplicated Status: Chronic Assessment and Plan In summary this is a 77-year-old male with unknown medical history, brought to the hospital by EMS after having been found unresponsive by his . Patient was postictal upon his arrival. Was not moving his right side so stroke alert was called. He does have a significant alcohol history. Patient was also found to be in A. fib with RVR, new onset. 1. Altered mental status - CT with white matter atrophy - Seizure vs. CVA/TIA vs. metabolic encephalopathy vs. infection, clinical presentation is more consistent with alcoholic withdrawal seizure - Neurology consulted, has been seen and evaluated by Dr. Steiner. Likely seizure. We'll check EEG. CT and CTA ordered. - Continue stroke protocol neuro checks, HOB flat, permissive HTN, serial troponins - PT/ST/OT - Seizure precautions - MRI brain negative for acute event 2. Atrial fibrillation with RVR - Telemetry - Evaluated by cardiology: Continue metoprolol tartrate, 2-D echo, chest S2, but overall cardiology does not believe he would be a good anticoagulation candidate due to new-onset seizures and possibility of trauma and questionable GI bleed. For now aspirin 81 mg daily. If he changes his habits further recommendations can be considered. 3. R nondisplaced humeral head fracture - See imaging above - Ice - Pain control - Ortho has evaluated: ice, sling, CT shoulder w/o contrast ordered 4. Alcohol abuse - Check EtOH level and LFTs - Macrocytosis and thrombocytopenia consistent with chronic EtOH use - CIWA protocol - Rally pack - Seizure precautions 5. Hypertension - Start metoprolol 25 mg BID - Vasotec PRN 6. Hyperglycemia - HbA1c pending Electrolytes: replace potassium Chemical dvt proph on hold given concern for stroke, bilat SCDs Discharge Planning Further workup underway for a-fib and seizure. Ortho workup pending for right humerus fracture. Kayla Nova MD Sep 23, 2017 08:26
[2017-09-23 08:58] LABS: ALT (GPT) 78 U/L (12-78); AST (GOT) 110 U/L (15-37); BICARBONATE 23.5 MEQ/L (21.0-32.0); BLOOD UREA NITROGEN 8 MG/DL (7-18); CALCIUM 8.4 MG/DL (8.5-10.1); CHLORIDE 104 MEQ/L (98-107); CREATININE 0.91 MG/DL (0.60-1.30); GLOMERULAR FILTRATION RATE 81 ML/MIN (>89); GLUCOSE,RANDOM 109 MG/DL (74-106); SODIUM (NA) 140 MEQ/L (136-145)
[2017-09-23 09:00] LABS: ALKALINE PHOSPHATASE 114 U/L (45-117); TOTAL BILIRUBIN ADULT 1.4 MG/DL (0.2-1.0); TOTAL PROTEIN 6.4 GM/DL (6.4-8.2)
[2017-09-23 09:11] LABS: AUTOMATED NEUTROPHIL # 9.3 TH/MM3 (1.8-7.7); BASOPHIL % 0.1 % (0.0-2.0); EOSINOPHIL % 0.1 % (0.0-4.0); HEMATOCRIT 35.2 % (39.0-51.0); HEMOGLOBIN 12.1 GM/DL (13.0-17.0); LYMPH % 4.3 % (9.0-44.0); LYMPHOCYTE # 0.5 TH/MM3 (1.0-4.8); MEAN CELL VOLUME 106.6 FL (80.0-100.0); MEAN CORPUSCULAR HEMOGLOBIN 36.8 PG (27.0-34.0); MEAN CORPUSCULAR HGB CONC 34.5 % (32.0-36.0); MEAN PLATELET VOLUME 9.4 FL (7.0-11.0); MONO % 9.7 % (0.0-8.0); MONOCYTE # 1.1 TH/MM3 (0-0.9); NEUT % 85.8 % (16.0-70.0); PLATELET COUNT 80 TH/MM3 (150-450); RED CELL DISTRIBUTION WIDTH 13.6 % (11.6-17.2); WHITE BLOOD COUNT 10.9 TH/MM3 (4.0-11.0)
--- NOTE | 2017-09-23 10:16 | MB ---
cc: Anders Colby MD DATE: 09/23/2017 REASON FOR CONSULTATION: Right shoulder fracture. HISTORY OF PRESENT ILLNESS: The patient is a 77-year-old man, who is currently admitted to the hospital with new onset atrial fibrillation with rapid ventricular rate with a stroke alert. The patient was able to provide me some history, but it sounds somewhat different than what was recorded in the chart. According to the chart, the patient may have had a recent seizure and may be postictal. The patient has had evaluation since being admitted to the hospital, including CT scan and MRIs of the brain, which did not necessarily show acute infarct of the brain. The patient tells me that about a week ago, he fell when he injured the right shoulder. He has no crepitus. No numbness or tingling about the right upper extremity. The patient was admitted to the hospital. He had several x-rays done about the right elbow and the humerus. I did review these and then I ordered x-rays of the shoulder of a more dedicated fashion. PAST MEDICAL HISTORY: Positive for alcohol abuse and also as above. PAST SURGICAL HISTORY: Left olecranon ORIF, bilateral inguinal hernia repair. ALLERGIES: CODEINE. MEDICATIONS: See the chart. SOCIAL HISTORY: The patient lives with his and son. He is from [facility]. Speaks Yi, but somewhat broken Yi. He is retired. Drinks alcohol, 2 cups of whiskey a day and a couple of beers. Does not smoke. PHYSICAL EXAMINATION: VITAL SIGNS: Temperature is 100.0, pulse is 90, respirations 20, blood pressure 184/74. GENERAL: Awake, alert, and seems oriented. HEENT: His head is atraumatic. He does not seem to be in too much distress, although his left arm is currently restrained. The right arm is not restrained. HEENT: His extraocular muscles are intact. Oropharynx is moist. NECK: Supple with no tenderness. HEART: Irregularly irregular. LUNGS: Clear to auscultation bilaterally. ABDOMEN: Soft, nontender, nondistended with obesity. EXTREMITIES: Examination of right upper extremity shows that he has bruising of the upper arm of a mild to moderate degree. Compartments are soft. He has swelling of the right shoulder a moderate degree. Any motion causes pain about the right shoulder. He moves the fingers well on the right hand. He has 2+ radial pulse. PSYCHIATRIC: The patient has appropriate mood. Difficult for me to determine his insight and judgment. LABORATORY STUDIES: Shows white cell count of 10.9, hematocrit 35.2, platelets of 80, they were 123 previously. Coagulation studies: INR is 1.1. Chemistries show 3.3 potassium, calcium low at 8.4. Ammonia was high at 40. Urine showed significant glucose, protein, ketones, small amount of blood. Toxicology: Alcohol was less than 3. Acetaminophen less than 2. I reviewed the reports of the brain MRI and the head CT which neither of them show acute intracranial abnormality. I reviewed the images and the reports on the x-rays of the elbow, humerus, radius, and ulna and shoulder and for the most part agree with the reports except pertaining specifically to the shoulder. When it comes to the shoulder there does appear to be a fracture of the lower neck region, although the pattern is not quite obvious, does not seem to fit a typical pattern. Also, I am concerned there is a possibility of a posterior dislocation based on the AP and the scapular Y view of the right shoulder, I do think that these x-rays are definitive enough for me to be able to rule out a posterior dislocation. IMPRESSION: 1. Right shoulder proximal humerus fracture, rule out posterior dislocation. 2. History of alcohol abuse with possible recent seizure. 3. Possible stroke, although with negative CT and MRI of the brain. DECISION MAKING: I do feel that he needs to be followed with some further imaging before considering nonoperative management in this condition. I would like to order a stat CT scan of the right shoulder. This will help us rule out a posterior dislocation. If the fracture is just isolated to the proximal humerus and no dislocation is found, then I would likely recommend nonoperative management for this condition. It is possibly he could require further imaging such as an MRI. If a posterior dislocation is identified along with a fracture, then we may need to ultimately move forward with surgical management for this patient, which of course, we would also require medical clearance, which could be difficult given his current acute medical conditions as described. At this point, we do not have a complete plan and we will be moving forward with further imaging. Thank you for allowing me to participate in the care of this patient. Anders R. Lasha, MD [facility] , 09:44 AM , 10:14 AM
[2017-09-23] MEDS: POTASSIUM CHLORIDE 10 MEQ CONTROLLED RELEASE TAB PO ONE ×2 (11:00→12:41)
--- NOTE | 2017-09-23 11:08 | RADRPT ---
EXAM DATE/TIME: 09/23/2017 10:39 [facility] COMPARISON: No previous studies available for comparison. INDICATIONS : Right shoulder pain. Patient states he fell. RADIATION DOSE: 20.41 CTDIvol (mGy) MEDICAL HISTORY : Seizures. Afib SURGICAL HISTORY : None. ENCOUNTER: Initial ACUITY: 1 day PAIN SCALE: 8/10 LOCATION: Right shoulder TECHNIQUE: Volumetric scanning of the shoulder was performed. Using automated exposure control a nd adjustment of the mA and/or kV according to patient size, radiation dose was kept as low as reason ably achievable to obtain optimal diagnostic quality images. DICOM format image data is available e lectronically for review and comparison. FINDINGS: BONES: There is a highly comminuted and displaced fracture of the humeral head through the level of the greater tuberosities and associated with a large adjacent hematoma. The adjacent glenoid appea rs intact. No evidence of fracture the scapula or clavicle. CONCLUSION: Highly comminuted and displaced fracture involving the humeral head with large adjace nt hematoma. Fracture extends through the greater tuberosities. Stefania Sandoval MD on September 23, 2017 at 11:02 Board Certified Radiologist. This report was verified electronically.
--- NOTE | 2017-09-23 11:25 | HHI.PR ---
Subjective Remarks afib Objective Vital Signs Date Time Temp Pulse Resp B/P (MAP) Pulse Ox O2 Delivery O2 Flow Rate FiO2 09/23/17 09:07 100.0 90 20 184/74 (110) 100 09/23/17 04:00 97.6 98 16 142/82 (102) 99 09/23/17 00:00 97.8 98 18 140/82 (101) 98 09/22/17 20:00 97.8 101 16 146/85 (105) 96 09/22/17 17:42 99.7 91 20 146/93 (110) 99 09/22/17 17:04 99 19 152/99 (116) 98 Room Air 09/22/17 13:53 148/92 (110) 09/22/17 11:28 102 152/101 (118) I/O 09/22/17 09/22/17 09/22/17 09/23/17 09/23/17 09/23/17 06:59 14:59 22:59 06:59 14:59 22:59 # Voids 2 Result Diagram: 09/23/17 0752 09/23/17 0752 Objective Remarks vff face sym moves all well x rue pain fist nl r not aphasic Assessment and Plan Assessment and Plan imp no cva mri neg check us afib fu echo and figure out chads risk defer to med team some hematoma in shoulder fx etoh fu eeg no aed unless eeg abn Winston Steiner MD Sep 23, 2017 11:25
--- NOTE | 2017-09-23 13:30 | PD.CARD.PN ---
Subjective Subjective Remarks No events overnight Still appears confused overall Objective Medications Current Medications Medications (Trade) Dose Ordered Sig/Ina Route Start Time Stop Time Status Last Admin (Romazicon Inj) 0.2 mg Q1M PRN IV PUSH 09/22/17 11:15 (Ativan) 1 mg Q4H PRN PO 09/22/17 11:15 (Ativan Inj) 1 mg Q4H PRN IV PUSH 09/22/17 11:15 (Ativan) 2 mg Q2H PRN PO 09/22/17 11:15 (Ativan Inj) 2 mg Q2H PRN IV PUSH 09/22/17 11:15 09/22/17 16:17 (Ativan Inj) 2 mg Q1H PRN IV PUSH 09/22/17 11:15 (Ativan Inj) 2 mg Q15M PRN IV PUSH 09/22/17 11:15 Sodium Chloride 1,000 ml @ 70 mls/hr [id number] IV 09/22/17 12:00 09/22/17 14:37 Multivitamins 10 ml/Folic Acid 1 mg/Sodium Chloride 510.2 ml @ 125 mls/hr Q24H IV 09/22/17 14:00 09/27/17 13:59 09/22/17 13:12 Thiamine HCl 100 mg/Sodium Chloride 101 ml @ 100 mls/hr Q24H IV 09/22/17 13:00 09/25/17 12:59 09/22/17 13:12 (Lovenox Inj) 40 mg Q24H SQ 09/22/17 16:00 09/22/17 16:08 (Morphine Inj) 2 mg Q4H PRN IV PUSH 09/22/17 13:00 09/22/17 18:33 (Lopressor) 25 mg BID PO 09/22/17 13:30 09/23/17 07:58 (NS Flush) 2 ml UNSCH PRN IV FLUSH 09/22/17 13:00 (NS Flush) 2 ml BID IV FLUSH 09/22/17 21:00 09/23/17 07:58 (Tylenol) 650 mg Q4H PRN PO 09/22/17 13:00 (Zofran Inj) 4 mg Q6H PRN IVP 09/22/17 13:00 (Narcan Inj) 0.4 mg UNSCH PRN IV PUSH 09/22/17 13:00 (Leah-Colace) 1 tab BID PO 09/22/17 21:00 09/23/17 07:57 (Milk Of Magnesia Liq) 30 ml Q12H PRN PO 09/22/17 13:00 (Senokot) 17.2 mg Q12H PRN PO 09/22/17 13:00 (Dulcolax Supp) 10 mg DAILY PRN RECTAL 09/22/17 13:00 (Lactulose Liq) 30 ml DAILY PRN PO 09/22/17 13:00 (Vasotec Inj) 1.25 mg Q6H PRN IV PUSH 09/22/17 13:00 (Ativan Inj) 2 mg Q10M PRN IV PUSH 09/22/17 13:45 (Aspirin Chew) 81 mg DAILY CHEW 09/23/17 09:00 09/23/17 07:58 Vital Signs / I&O Vital Signs Date Time Temp Pulse Resp B/P (MAP) Pulse Ox O2 Delivery O2 Flow Rate FiO2 09/23/17 12:46 97 21 09/23/17 11:46 99.8 89 20 182/70 (107) 98 09/23/17 09:07 100.0 90 20 184/74 (110) 100 09/23/17 04:00 97.6 98 16 142/82 (102) 99 09/23/17 00:00 97.8 98 18 140/82 (101) 98 09/22/17 20:00 97.8 101 16 146/85 (105) 96 09/22/17 17:42 99.7 91 20 146/93 (110) 99 09/22/17 17:04 99 19 152/99 (116) 98 Room Air 09/22/17 13:53 148/92 (110) I/O 09/22/17 09/22/17 09/22/17 09/23/17 09/23/17 09/23/17 07:00 15:00 23:00 07:00 15:00 23:00 # Voids 2 Physical Exam GENERAL: NAD SKIN: Warm and dry. HEAD: Atraumatic. Normocephalic. EYES: Pupils equal and round. No scleral icterus. No injection or drainage. ENT: No nasal bleeding or discharge. Mucous membranes pink and moist. NECK: Trachea midline. No JVD. CARDIOVASCULAR: Irregularly irregular RESPIRATORY: No accessory muscle use. Clear to auscultation. Breath sounds equal bilaterally. GASTROINTESTINAL: Abdomen soft, non-tender, nondistended. Hepatic and splenic margins not palpable. MUSCULOSKELETAL: Extremities without clubbing, cyanosis, or edema. No obvious deformities. NEUROLOGICAL: Awake and alert. No obvious cranial nerve deficits. Motor grossly within normal limits. Five out of 5 muscle strength in the arms and legs. Normal speech. PSYCHIATRIC: Appropriate mood and affect; insight and judgment normal. Laboratory Laboratory Tests Test 09/22/17 15:00 09/23/17 07:52 Ammonia 40 MCMOL/L White Blood Count 10.9 TH/MM3 Red Blood Count 3.30 MIL/MM3 Hemoglobin 12.1 GM/DL Hematocrit 35.2 % Mean Corpuscular Volume 106.6 FL Mean Corpuscular Hemoglobin 36.8 PG Mean Corpuscular Hemoglobin Concent 34.5 % Red Cell Distribution Width 13.6 % Platelet Count 80 TH/MM3 Mean Platelet Volume 9.4 FL Neutrophils (%) (Auto) 85.8 % Lymphocytes (%) (Auto) 4.3 % Monocytes (%) (Auto) 9.7 % Eosinophils (%) (Auto) 0.1 % Basophils (%) (Auto) 0.1 % Neutrophils # (Auto) 9.3 TH/MM3 Lymphocytes # (Auto) 0.5 TH/MM3 Monocytes # (Auto) 1.1 TH/MM3 Eosinophils # (Auto) 0.0 TH/MM3 Basophils # (Auto) 0.0 TH/MM3 CBC Comment AUTO DIFF Differential Comment AUTO DIFF CONFIRMED Platelet Estimate LOW Platelet Morphology Comment NORMAL Blood Urea Nitrogen 8 MG/DL Creatinine 0.91 MG/DL Random Glucose 109 MG/DL Total Protein 6.4 GM/DL Albumin 3.0 GM/DL Calcium Level 8.4 MG/DL Alkaline Phosphatase 114 U/L Aspartate Amino Transf (AST/SGOT) 110 U/L Alanine Aminotransferase (ALT/SGPT) 78 U/L Total Bilirubin 1.4 MG/DL Sodium Level 140 MEQ/L Potassium Level 3.3 MEQ/L Chloride Level 104 MEQ/L Carbon Dioxide Level 23.5 MEQ/L Anion Gap 13 MEQ/L Estimat Glomerular Filtration Rate 81 ML/MIN Imaging Last 24 hours Impressions Upper Extremity CT 09/23/17 0000 Signed Impressions: Service Date/Time: Saturday, September 23, 2017 10:39 - CONCLUSION: Highly comminuted and displaced fracture involving the humeral head with large adjacent hematoma. Fracture extends through the greater tuberosities. Stefania Sandoval MD Assessment and Plan Problem List: (1) Altered mental status ICD Codes: R41.82 - Altered mental status, unspecified Status: Acute (2) Atrial fibrillation with RVR ICD Codes: I48.91 - Unspecified atrial fibrillation Status: Acute (3) Right humeral fracture ICD Codes: S42.301A - Unspecified fracture of shaft of humerus, right arm, initial encounter for closed fracture Status: Acute (4) New onset seizure ICD Codes: R56.9 - Unspecified convulsions Status: Acute (5) Alcohol abuse ICD Codes: F10.10 - Alcohol abuse, uncomplicated Status: Chronic Assessment and Plan 1) Possible seizure Further work up per Neuro 2) Afib with RVR Heart rates controlled on low dose BB May be due to his overall ETOH abuse CHADSVASc = 2, not an anti-coagulation candidate due to GI bleeds with heavy drinking as well as concern for complications of his heavy drinking (seizures, varices, etc) ASA 81mg daily 3) HTN Will plan to con't BB and add CCB for better control May be due to withdrawal 4) 2D echo pending Jose Dixon DO Sep 23, 2017 13:30
[2017-09-23] MEDS ORDERED: amLODIPine BESYLATE 5 MG TAB PO SCH (14:00)
[2017-09-23] MEDS: THIAMINE INJ 100 MG in SODIUM CHLORIDE 0.9% INJ 100 ML IV SCH (14:02)
[2017-09-23 14:26] LABS: HEMOGLOBIN A1C 5.1 % (4.3-6.0)
[2017-09-23] MEDS: MULTIVITAMIN INJ 10 ML, FOLIC ACID INJ 1 MG in SODIUM CHLORID 0.9% 500 ML INJ 500 ML IV SCH (15:06)
[2017-09-23] MEDS: ENOXAPARIN SODIUM 40 MG/0.4 ML SYRINGE SQ SCH (15:33)
--- NOTE | 2017-09-23 17:08 | EKG ---
Date Performed: 09/22/2017 Time Performed: 09:21:26 PTAGE: 77 years EKG: ATRIAL FIBRILLATION WITH RAPID VENTRICULAR RESPONSE MODERATE INTRAVENTRICULAR CONDUCTION DE LAY NONSPECIFIC ST & T-WAVE ABNORMALITY Compared to previous tracing, Sinus rhythm has changed to atrial fibrillation. ST-T changes are new. There's improvement in the R force in V3 A BNORMAL ECG PREVIOUS TRACING : 08/19/2013 16.57 DOCTOR: Josué Beard Interpretating Date/Time 09/23/2017 17:07:12
--- NOTE | 2017-09-23 19:32 | RADRPT ---
EXAM DATE/TIME: 09/23/2017 18:44 [facility] COMPARISON: MRI BRAIN W & W/O CONTRAST, September 22, 2017, 12:01. INDICATIONS : Cerebrovascular accident. MEDICAL HISTORY : Seizures. Atrial fibrillation. SURGICAL HISTORY : None. ENCOUNTER: Initial ACUITY: 2 days PAIN SCORE: 0/10 LOCATION: Bilateral neck PEAK SYSTOLIC VELOCITIES (cm/sec): ICA/CCA RATIO: Right: 1.2 Left: 0.8 ICA: Right: 87 Left: 91 CCA: Right: 70 Left: 112 ECA: Right: 56 Left: 71 VERTEBRAL: Right: 44 antegrade Left: 58 antegrade Elevated flow velocities and ICA/CCA ratios have been found to correlate with increased degrees of vessel stenosis, calculated as percentage of diameter relative to a normal segment of distal ICA/CCA FINDINGS: RIGHT CAROTID: Minimal plaque mid and distal CCA, bulb and proximal ICA. No significant stenosis is visualized. The waveforms are within normal limits. LEFT CAROTID: Trace plaque bulb and proximal ICA. No significant stenosis is visualized. The waveforms are within normal limits. VERTEBRAL ARTERIES: Antegrade flow is seen in both vertebral arteries. MISCELLANEOUS: None. CONCLUSION: Mild carotid atherosclerotic plaque without significant narrowing. Please see above. Tony Solares MD on September 23, 2017 at 19:28 Board Certified Radiologist. This report was verified electronically.
[2017-09-24] VITALS: BP 140/80; PULSE 96; RESP 16; TEMP 98.2; O2SAT 96
[2017-09-24] MEDS: METOPROLOL TARTRATE 25 MG TAB PO SCH ×5 (00:01→23:51)
[2017-09-24 04:00] VITALS: BP 136/86; PULSE 95; RESP 16; TEMP 98.5; O2SAT 96
[2017-09-24] MEDS: SODIUM CHLOR 0.9% 1000 ML INJ 1,000 ML IV SCH ×2 (06:01→21:12)
[2017-09-24] MEDS ORDERED: VANCOMYCIN HCL 1000 MG VIAL ONE ×2 (06:56→10:17)
[2017-09-24] MEDS ORDERED: ceFAZolin INJ 1,000 MG VIAL ONE (06:56)
[2017-09-24] MEDS ORDERED: GENTAMICIN SULFATE 80 MG/2 ML VIAL ONE (06:56)
[2017-09-24] MEDS ORDERED: SODIUM CHLOR 0.9% 250 ML INJ 250 ML IV ONE (07:30)
[2017-09-24 07:43] VITALS: BP 159/89; PULSE 100; RESP 18; TEMP 98.7; O2SAT 95
--- NOTE | 2017-09-24 08:21 | MG ---
cc: Winston Steiner MD ELECTROENCEPHALOGRAM NUMBER: [id number]. INDICATIONS: Fell off sofa, alcohol use, melena, possible seizure. DESCRIPTION: Diffuse low-amplitude beta rhythms are noted. Some bifrontal muscle artifact and blink artifact is seen. Hyperventilation is not performed. Photic stimulation is not performed. No hemisphere asymmetries are noted. No epileptiform or seizure activity is noted. IMPRESSION: A normal awake EEG. No evidence for a focal or diffuse abnormality. MD JAVIER Carrillo/CALEB , 09:14 PM , 09:38 PM
[2017-09-24] MEDS: DOCUSATE SODIUM 50 MG/SENNA 8.6 MG TAB PO SCH ×2 (09:00→21:00)
[2017-09-24] MEDS: ASPIRIN 81 MG CHEW TAB CHEW SCH (09:00)
[2017-09-24] MEDS: SODIUM CHLORIDE 0.9% FLUSH 10 ML FLUSH IV FLUSH SCH ×2 (09:00→21:00)
--- NOTE | 2017-09-24 10:39 | PD.OP ---
cc: Ck Haley MD Operative Report Date of Surgery: Sep 24, 2017 Preoperative Diagnosis: Right shoulder dislocation, right proximal humerus fracture Postoperative Diagnosis: Procedure: Open reduction of right shoulder dislocation, open reduction internal fixation right proximal humerus fracture Anesthesia: General Surgeon: Ck Haley [employer] Vice President(s): SKYLA Kay PA-C The surgical procedure was assisted by my physician oral surgery assistant. My P.A. presence was necessary throughout this case for the manipulation and positioning of the surgical extremity. My P.A. was assisting me throughout the duration of this procedure. The skill set of a physician oral surgery assistant was medically necessary to complete this procedure. During the surgical case the product/device technologist was working at the back table and the physician oral surgery assistant was directly assisting me. Operation and Findings: Implants used: Synthes Plan of activity: Right arm abduction/external rotation orthosis at all times Patient was seen and evaluated preoperatively. Patient was found to have a displaced proximal humerus fracture with dislocation of the glenohumeral joint. The risks and benefits of surgical and nonsurgical options were discussed in detail and informed consent was obtained for surgery from patient's . Patient was brought to the operating room and placed on or table. IV sedation and GETA were administered by anesthesiologist. Antibiotics were given prior to incision. Operative arm and shoulder were prepped with alcohol followed by Hibiclens and draped usual sterile fashion. Timeout procedure was performed. Procedure began with a 6 inch incision over the anterior shoulder. Cephalic vein was identified. A deltopectoral approach was utilized. The fracture was now visualized. Soft tissue was retracted. A #5 FiberWire suture was placed into the rotator rotator cuff and greater tuberosity. Attention was now turned to reduction of the shoulder dislocation. The humeral head was posterior to the glenoid. Soft tissue was retracted. A threaded Steinmann pin was now screwed into the humeral head. A joker elevator was placed between the glenoid and the humeral head. The humeral head was manipulated back through the perforated joint capsule. The humeral head was reduced up to the glenoid. Fluoroscopy confirmed appropriate reduction of the shoulder joint. Nexus return to open reduction internal fixation of the fracture. Gentle traction was applied. The humeral shaft was reduced to the humeral head. Fracture was manipulated to achieve excellent reduction. Multiplanar fluoroscopy confirmed well aligned fracture. Multiple K wires were used to hold provisional fixation. A Synthes proximal humerus plate was selected. Plate was provisionally held in place K wires. 3.5 cortical screws were used to compress plate to bone. Fluoroscopy confirmed appropriate plate placement and fracture reduction. Multiple locking screws were now placed in the humeral head. Screws were predrilled and premeasured for appropriate length. Care was taken not to penetrate the articular surface. Additional screws were placed in the humeral shaft. The FiberWire suture was passed through the holes of the plate and sutured to the plate for additional stability. An additional #2 FiberWire sutures passed through the subscapularis tendon and also sutured to the plate. Final fluoroscopy revealed well aligned fracture with well-placed hardware. Wound was thoroughly irrigated. Fascia was closed with #1 Vicryl, subcutaneous tissues closed with 3-0 Vicryl, and skin was closed with alyson. Sterile dressings were applied. Patient was placed into a 'gunslinger' orthosis with the right arm externally rotated 10. Patient was awakened and transferred to recovery in stable condition. Needle and sponge counts were correct. Ck Haley MD Sep 24, 2017 10:39
[2017-09-24] MEDS ORDERED: MORPHINE SULFATE 4 MG/ML INJ IV PUSH PRN (10:45)
[2017-09-24] MEDS ORDERED: diphenhydrAMINE HCL 25 MG CAP PO PRN (10:45)
[2017-09-24] MEDS ORDERED: ACETAMINOPHEN/HYDROcodone 325 MG/10 MG TAB PO PRN (10:45)
[2017-09-24] MEDS ORDERED: ERGOCALCIFEROL (VIT D2) 50,000 UNIT CAP PO SCH (11:00)
--- NOTE | 2017-09-24 11:03 | RADRPT ---
EXAM DATE/TIME: 09/24/2017 10:14 [place] COMPARISON: No previous studies available for comparison. INDICATIONS : ORIF right humerus fracture. MEDICAL HISTORY : Unobtainable. SURGICAL HISTORY : Unobtainable. ENCOUNTER: Subsequent ACUITY: 2 days PAIN SCORE: Non-responsive. LOCATION: Right humerus. FINDINGS: Plate with screws is seen bridging the fracture of the right humerus. Alignment anatomic. CONCLUSION: Anatomic alignment. Alexander Bender MD FACR on September 24, 2017 at 11:00 Board Certified Radiologist. This report was verified electronically.
[2017-09-24] MEDS ORDERED: NORMOSOL R INJ 1,000 ML IV ONE (12:00)
[2017-09-24] MEDS ORDERED: MORPHINE SULFATE 4 MG/ML INJ IV ONE (12:00)
[2017-09-24] MEDS ORDERED: DO NOT ADM ANY ANTICOAGULANT DRUGS PRN (12:30)
[2017-09-24] MEDS: CALCIUM/VITAMIN D 250 MG/125 U TAB PO SCH ×2 (13:00→18:07)
[2017-09-24] MEDS: THIAMINE INJ 100 MG in SODIUM CHLORIDE 0.9% INJ 100 ML IV SCH (13:00)
[2017-09-24] MEDS: MULTIVITAMIN INJ 10 ML, FOLIC ACID INJ 1 MG in SODIUM CHLORID 0.9% 500 ML INJ 500 ML IV SCH (14:00)
--- NOTE | 2017-09-24 14:22 | HHI.PR ---
Subjective Remarks Follow up encephalopathy/dislocated right shoulder 09/24/17-Patient seen and examined; s/p ORIF right shoulder today, groggy otherwise stable. Case discussed with cardiology. Objective Vitals Vital Signs Date Time Temp Pulse Resp B/P (MAP) Pulse Ox O2 Delivery O2 Flow Rate FiO2 09/24/17 11:45 90 16 176/79 (111) 100 Nasal Cannula 2 09/24/17 11:30 84 14 157/76 (103) 95 Nasal Cannula 3 09/24/17 11:15 82 15 178/91 (120) 95 Nasal Cannula 3 09/24/17 11:09 98.2 93 16 159/81 (107) 96 Nasal Cannula 3 09/24/17 07:43 98.7 100 18 159/89 (112) 95 09/24/17 04:00 98.5 95 16 136/86 (103) 96 09/24/17 00:00 98.2 96 16 140/80 (100) 96 09/23/17 20:00 98.2 92 16 134/78 (96) 95 09/23/17 16:33 100.6 108 20 180/67 (104) 100 I/O 09/23/17 09/23/17 09/23/17 09/24/17 09/24/17 09/24/17 07:00 15:00 23:00 07:00 15:00 23:00 Intake Total 120 ml 1672 ml Output Total 75 ml Balance 120 ml 1597 ml Intake Oral 120 ml Platelets 472 ml Other 1200 ml Output Estimated Blood Loss 75 ml # Voids 2 6 # Bowel Movements 0 Result Diagram: 09/23/17 0752 09/23/17 0752 Imaging Last Impressions Shoulder X-Ray 09/24/17 0000 Signed Impressions: Service Date/Time: Sunday, September 24, 2017 10:14 - CONCLUSION: Anatomic alignment. Alexander Bender MD FACR Upper Extremity CT 09/23/17 0000 Signed Impressions: Service Date/Time: Saturday, September 23, 2017 10:39 - CONCLUSION: Highly comminuted and displaced fracture involving the humeral head with large adjacent hematoma. Fracture extends through the greater tuberosities. Stefania Sandoval MD Carotid Artery Ultrasound 09/23/17 0000 Signed Impressions: Service Date/Time: Saturday, September 23, 2017 18:44 - CONCLUSION: Mild carotid atherosclerotic plaque without significant narrowing. Please see above. Tony Solares MD Brain MRI 09/22/1736 Signed Impressions: Service Date/Time: Friday, September 22, 2017 12:01 - CONCLUSION: No evidence of acute intracranial abnormality. There is extensive white matter atrophic change , greater than expected for the patient's age.. Stefania Sandoval MD Radius/Ulna X-Ray 09/22/17923 Signed Impressions: Service Date/Time: Friday, September 22, 2017 10:23 - CONCLUSION: Severe degenerative changes and osteopenia. No visualized fracture.. Stefania Sandoval MD Humerus X-Ray 09/22/17923 Signed Impressions: Service Date/Time: Friday, September 22, 2017 10:33 - CONCLUSION: Nondisplaced fracture of the right humeral head at the level of the greater trochanter.. Stefania Sandoval MD Elbow X-Ray 09/22/17923 Signed Impressions: Service Date/Time: Friday, September 22, 2017 10:20 - CONCLUSION: No evidence of fracture. Stefania Sandoval MD Liver Ultrasound 09/22/17 0000 Signed Impressions: Service Date/Time: Friday, September 22, 2017 15:09 - CONCLUSION: Gallstone. Tony Recinos MD Head CT 09/22/17 Signed Impressions: Service Date/Time: Friday, September 22, 2017 09:37 - CONCLUSION: Diffuse white matter atrophic changes, somewhat greater than expected for the patient's age. No evidence of acute abnormality.. Stefania Sandoval MD Chest X-Ray 09/22/17 Signed Impressions: Service Date/Time: Friday, September 22, 2017 10:16 - CONCLUSION: No acute disease. Stefania Sandoval MD Objective Remarks GENERAL: NAD with restrains to LUE, LLE SKIN: Warm and dry. HEAD: Normocephalic. EYES: No scleral icterus. No injection or drainage. NECK: Supple, trachea midline. No JVD or lymphadenopathy. CARDIOVASCULAR: Regular rate and rhythm without murmurs, gallops, or rubs. RESPIRATORY: Breath sounds equal bilaterally. No accessory muscle use. GASTROINTESTINAL: Abdomen soft, non-tender, nondistended. MUSCULOSKELETAL: No cyanosis, or edema. s/p right shoulder ORIF BACK: Nontender without obvious deformity. No CVA tenderness. Procedures Open reduction of right shoulder dislocation, open reduction internal fixation right proximal humerus fracture 09/24/17 A/P Problem List: (1) Altered mental status ICD Code: R41.82 - Altered mental status, unspecified Status: Acute (2) Atrial fibrillation with RVR ICD Code: I48.91 - Unspecified atrial fibrillation Status: Acute (3) Right humeral fracture ICD Code: S42.301A - Unspecified fracture of shaft of humerus, right arm, initial encounter for closed fracture Status: Acute (4) Alcohol abuse ICD Code: F10.10 - Alcohol abuse, uncomplicated Status: Chronic Assessment and Plan 77-year-old man with 1. Altered mental status - CT with white matter atrophy - Seizure vs. CVA/TIA vs. metabolic encephalopathy vs. infection, clinical presentation is more consistent with alcoholic withdrawal seizure - Neurology consulted, has been seen and evaluated by Dr. Steiner. Likely seizure. We'll check EEG. CT and CTA ordered. - Continue stroke protocol neuro checks, HOB flat, permissive HTN, serial troponins - PT/ST/OT - Seizure precautions - MRI brain negative for acute event 2. Atrial fibrillation with RVR - Continue metoprolol tartrate -Per Cardiology, patient is not a candidate for OAC - For now aspirin 81 mg daily. 3. R nondisplaced humeral head fracture -Open reduction of right shoulder dislocation, open reduction internal fixation right proximal humerus fracture 09/24/17 4. Alcohol abuse - CIWA protocol - Rally pack - Seizure precautions 5. Hypertension -On metoprolol 25 mg BID - Vasotec PRN 6. Hyperglycemia - HbA1c 5.1 Walker Lezama MD Sep 24, 2017 14:22
--- NOTE | 2017-09-24 15:24 | PD.CARD.PN ---
Subjective Subjective Remarks No events overnight ORIF right humerus today Objective Medications Current Medications Medications (Trade) Dose Ordered Sig/Ina Route Start Time Stop Time Status Last Admin (Romazicon Inj) 0.2 mg Q1M PRN IV PUSH 09/22/17 11:15 (Ativan) 1 mg Q4H PRN PO 09/22/17 11:15 (Ativan Inj) 1 mg Q4H PRN IV PUSH 09/22/17 11:15 (Ativan) 2 mg Q2H PRN PO 09/22/17 11:15 (Ativan Inj) 2 mg Q2H PRN IV PUSH 09/22/17 11:15 09/22/17 16:17 (Ativan Inj) 2 mg Q1H PRN IV PUSH 09/22/17 11:15 (Ativan Inj) 2 mg Q15M PRN IV PUSH 09/22/17 11:15 Sodium Chloride 1,000 ml @ 70 mls/hr [id number] IV 09/22/17 12:00 09/23/17 16:36 Multivitamins 10 ml/Folic Acid 1 mg/Sodium Chloride 510.2 ml @ 125 mls/hr Q24H IV 09/22/17 14:00 09/27/17 13:59 09/23/17 15:06 Thiamine HCl 100 mg/Sodium Chloride 101 ml @ 100 mls/hr Q24H IV 09/22/17 13:00 09/25/17 12:59 09/23/17 14:02 (Lovenox Inj) 40 mg Q24H SQ 09/22/17 16:00 09/22/17 16:08 (NS Flush) 2 ml UNSCH PRN IV FLUSH 09/22/17 13:00 (NS Flush) 2 ml BID IV FLUSH 09/22/17 21:00 09/23/17 21:00 (Tylenol) 650 mg Q4H PRN PO 09/22/17 13:00 (Zofran Inj) 4 mg Q6H PRN IVP 09/22/17 13:00 (Narcan Inj) 0.4 mg UNSCH PRN IV PUSH 09/22/17 13:00 (Leah-Colace) 1 tab BID PO 09/22/17 21:00 09/23/17 21:48 (Milk Of Magnesia Liq) 30 ml Q12H PRN PO 09/22/17 13:00 (Senokot) 17.2 mg Q12H PRN PO 09/22/17 13:00 (Dulcolax Supp) 10 mg DAILY PRN RECTAL 09/22/17 13:00 (Lactulose Liq) 30 ml DAILY PRN PO 09/22/17 13:00 (Vasotec Inj) 1.25 mg Q6H PRN IV PUSH 09/22/17 13:00 09/23/17 18:41 (Ativan Inj) 2 mg Q10M PRN IV PUSH 09/22/17 13:45 (Aspirin Chew) 81 mg DAILY CHEW 09/23/17 09:00 09/23/17 07:58 (Lopressor) 25 mg Q6HR PO 09/23/17 14:00 09/24/17 12:00 (Norvasc) 5 mg DAILY PO 09/23/17 14:00 09/23/17 15:22 Sodium Chloride 250 ml @ 15 mls/hr ONCE ONCE IV 09/24/17 07:30 09/25/17 00:09 Cefazolin Sodium 2000 mg/Sodium Chloride 120 ml @ 240 mls/hr Q8H IV 09/24/17 17:00 09/26/17 09:29 ([place] 10-325 Mg) 1 tab Q3H PRN PO 09/24/17 10:45 (Oscal-D 250-125) 250 mg TID PO 09/24/17 13:00 (Benadryl) 25 mg Q6H PRN PO 09/24/17 10:45 (Morphine Inj) 4 mg Q3H PRN IV PUSH 09/24/17 10:45 (Drisdol) 50,000 units Q7D PO 09/24/17 11:00 (Vitamin D3) 1,000 units DAILY PO 09/25/17 09:00 Miscellaneous Information ALL NURSING DEPARTME... UNSCH PRN .XX 09/24/17 12:30 09/25/17 12:29 Vital Signs / I&O Vital Signs Date Time Temp Pulse Resp B/P (MAP) Pulse Ox O2 Delivery O2 Flow Rate FiO2 09/24/17 11:45 90 16 176/79 (111) 100 Nasal Cannula 2 09/24/17 11:30 84 14 157/76 (103) 95 Nasal Cannula 3 09/24/17 11:15 82 15 178/91 (120) 95 Nasal Cannula 3 09/24/17 11:09 98.2 93 16 159/81 (107) 96 Nasal Cannula 3 09/24/17 07:43 98.7 100 18 159/89 (112) 95 09/24/17 04:00 98.5 95 16 136/86 (103) 96 09/24/17 00:00 98.2 96 16 140/80 (100) 96 09/23/17 20:00 98.2 92 16 134/78 (96) 95 09/23/17 16:33 100.6 108 20 180/67 (104) 100 I/O 09/23/17 09/23/17 09/23/17 09/24/17 09/24/17 09/24/17 07:00 15:00 23:00 07:00 15:00 23:00 Intake Total 120 ml 1672 ml Output Total 75 ml Balance 120 ml 1597 ml Intake Oral 120 ml Platelets 472 ml Other 1200 ml Output Estimated Blood Loss 75 ml # Voids 2 6 # Bowel Movements 0 Physical Exam GENERAL: NAD SKIN: Warm and dry. HEAD: Atraumatic. Normocephalic. EYES: Pupils equal and round. No scleral icterus. No injection or drainage. ENT: No nasal bleeding or discharge. Mucous membranes pink and moist. NECK: Trachea midline. No JVD. CARDIOVASCULAR: Irregularly irregular RESPIRATORY: No accessory muscle use. Clear to auscultation. Breath sounds equal bilaterally. GASTROINTESTINAL: Abdomen soft, non-tender, nondistended. Hepatic and splenic margins not palpable. MUSCULOSKELETAL: Extremities without clubbing, cyanosis, or edema. No obvious deformities. NEUROLOGICAL: Awake and alert. No obvious cranial nerve deficits. Motor grossly within normal limits. Five out of 5 muscle strength in the arms and legs. Normal speech. PSYCHIATRIC: Appropriate mood and affect; insight and judgment normal. Imaging Last 24 hours Impressions Shoulder X-Ray 09/24/17 0000 Signed Impressions: Service Date/Time: Sunday, September 24, 2017 10:14 - CONCLUSION: Anatomic alignment. Alexander Bender MD FACR Assessment and Plan Problem List: (1) Altered mental status ICD Codes: R41.82 - Altered mental status, unspecified Status: Acute (2) Atrial fibrillation with RVR ICD Codes: I48.91 - Unspecified atrial fibrillation Status: Acute (3) Right humeral fracture ICD Codes: S42.301A - Unspecified fracture of shaft of humerus, right arm, initial encounter for closed fracture Status: Acute (4) New onset seizure ICD Codes: R56.9 - Unspecified convulsions Status: Acute (5) Alcohol abuse ICD Codes: F10.10 - Alcohol abuse, uncomplicated Status: Chronic Assessment and Plan 1) Possible seizure Further work up per Neuro 2) Afib with RVR Heart rates controlled on low dose BB May be due to his overall ETOH abuse CHADSVASc = 2, not an anti-coagulation candidate due to GI bleeds with heavy drinking as well as concern for complications of his heavy drinking (seizures, varices, etc) ASA 81mg daily 3) HTN Will plan to con't BB and CCB Plan to increase Norvasc May be due to withdrawal 4) 2D echo pending Jose Dixon DO Sep 24, 2017 15:24
[2017-09-24] MEDS: ENOXAPARIN SODIUM 40 MG/0.4 ML SYRINGE SQ SCH (16:00)
[2017-09-24 16:03] VITALS: BP 131/64; PULSE 76; RESP 18; TEMP 100.2; O2SAT 94
[2017-09-24 16:05] LABS: AUTOMATED NEUTROPHIL # 5.3 TH/MM3 (1.8-7.7); BASOPHIL % 0.2 % (0.0-2.0); EOSINOPHIL % 0.1 % (0.0-4.0); HEMATOCRIT 29.5 % (39.0-51.0); HEMOGLOBIN 10.3 GM/DL (13.0-17.0); LYMPH % 10.7 % (9.0-44.0); LYMPHOCYTE # 0.7 TH/MM3 (1.0-4.8); MEAN CELL VOLUME 106.7 FL (80.0-100.0); MEAN CORPUSCULAR HEMOGLOBIN 37.4 PG (27.0-34.0); MEAN CORPUSCULAR HGB CONC 35.1 % (32.0-36.0); MEAN PLATELET VOLUME 9.9 FL (7.0-11.0); MONO % 8.9 % (0.0-8.0); MONOCYTE # 0.6 TH/MM3 (0-0.9); NEUT % 80.1 % (16.0-70.0); PLATELET COUNT 89 TH/MM3 (150-450); RED BLOOD COUNT 2.76 MIL/MM3 (4.50-5.90); RED CELL DISTRIBUTION WIDTH 13.6 % (11.6-17.2); WHITE BLOOD COUNT 6.6 TH/MM3 (4.0-11.0)
[2017-09-24 16:18] LABS: BICARBONATE 27.7 MEQ/L (21.0-32.0); CALCIUM 8.2 MG/DL (8.5-10.1); CREATININE 0.84 MG/DL (0.60-1.30)
[2017-09-24] MEDS: CEFAZOLIN INJ 2,000 MG in SODIUM CHLORIDE 0.9% INJ 100 ML IV SCH ×2 (18:08→23:51)
[2017-09-24 21:21] VITALS: BP 181/72; PULSE 87; RESP 18; TEMP 98.8; O2SAT 93
[2017-09-25] VITALS (8 sets, daily range): BP systolic 131–152; BP diastolic 59–73; PULSE 76–91; RESP 18–20; TEMP 95.5–99.2; O2SAT 94–97
[2017-09-25] MEDS: SODIUM CHLOR 0.9% 1000 ML INJ 1,000 ML IV SCH (05:53)
[2017-09-25] MEDS: METOPROLOL TARTRATE 25 MG TAB PO SCH ×3 (05:53→17:18)
--- NOTE | 2017-09-25 07:55 | HHI.PR ---
Subjective Remarks afib Objective Vital Signs Date Time Temp Pulse Resp B/P (MAP) Pulse Ox O2 Delivery O2 Flow Rate FiO2 09/25/17 07:42 99.2 76 18 149/60 (89) 97 09/25/17 05:22 98.6 85 18 152/67 (95) 95 09/25/17 00:00 98.7 88 18 135/59 (84) 94 09/25/17 00:00 84 09/24/17 21:21 98.8 87 18 181/72 (108) 93 09/24/17 16:03 100.2 76 18 131/64 (86) 94 09/24/17 11:45 90 16 176/79 (111) 100 Nasal Cannula 2 09/24/17 11:30 84 14 157/76 (103) 95 Nasal Cannula 3 09/24/17 11:15 82 15 178/91 (120) 95 Nasal Cannula 3 09/24/17 11:09 98.2 93 16 159/81 (107) 96 Nasal Cannula 3 I/O 09/24/17 09/24/17 09/24/17 09/25/17 09/25/17 09/25/17 07:00 15:00 23:00 07:00 15:00 23:00 Intake Total 1672 ml 1120 ml Output Total 75 ml 200 ml Balance 1597 ml 920 ml IV Total 1120 ml Platelets 472 ml Other 1200 ml Output Urine Total 200 ml Estimated Blood Loss 75 ml # Voids 6 1 Result Diagram: 09/24/17 1537 09/24/17 1537 Objective Remarks vff face sym moves all well x rue pain fist nl r not aphasic no change looks ok Assessment and Plan Assessment and Plan imp no cva mri neg check us afib fu echo and figure out chads risk defer to med team some hematoma in shoulder fx etoh fu eeg no aed unless eeg abn 09/25/17 us neg doing well will defer to med team on anticoag with afib will sign off Winston Steiner MD Sep 25, 2017 07:55
[2017-09-25] MEDS: SODIUM CHLORIDE 0.9% FLUSH 10 ML FLUSH IV FLUSH SCH ×2 (09:00→21:00)
[2017-09-25] MEDS: CALCIUM/VITAMIN D 250 MG/125 U TAB PO SCH ×3 (09:19→17:18)
[2017-09-25] MEDS: ASPIRIN 81 MG CHEW TAB CHEW SCH (09:19)
[2017-09-25] MEDS: DOCUSATE SODIUM 50 MG/SENNA 8.6 MG TAB PO SCH ×2 (09:19→21:37)
[2017-09-25] MEDS: CHOLECALCIFEROL (VIT D3) 1000 UNIT TAB PO SCH (09:19)
[2017-09-25] MEDS: CEFAZOLIN INJ 2,000 MG in SODIUM CHLORIDE 0.9% INJ 100 ML IV SCH ×2 (09:22→17:17)
--- NOTE | 2017-09-25 09:52 | PD.ORT.PN ---
Subjective Subjective Remarks POD 1 s/p ORIF right proximal humerus fx resting comfortably. nurse reports difficulty with gunslinger brace and not fitting appropriately Objective Vitals Vital Signs Date Time Temp Pulse Resp B/P (MAP) Pulse Ox O2 Delivery O2 Flow Rate FiO2 09/25/17 07:42 99.2 76 18 149/60 (89) 97 09/25/17 05:22 98.6 85 18 152/67 (95) 95 09/25/17 00:00 98.7 88 18 135/59 (84) 94 09/25/17 00:00 84 09/24/17 21:21 98.8 87 18 181/72 (108) 93 09/24/17 16:03 100.2 76 18 131/64 (86) 94 09/24/17 11:45 90 16 176/79 (111) 100 Nasal Cannula 2 09/24/17 11:30 84 14 157/76 (103) 95 Nasal Cannula 3 09/24/17 11:15 82 15 178/91 (120) 95 Nasal Cannula 3 09/24/17 11:09 98.2 93 16 159/81 (107) 96 Nasal Cannula 3 I/O 09/24/17 09/24/17 09/24/17 09/25/17 09/25/17 09/25/17 07:00 15:00 23:00 07:00 15:00 23:00 Intake Total 1672 ml 1120 ml Output Total 75 ml 200 ml Balance 1597 ml 920 ml IV Total 1120 ml Platelets 472 ml Other 1200 ml Output Urine Total 200 ml Estimated Blood Loss 75 ml # Voids 6 1 Result Diagram: 09/24/17 1537 09/24/17 1537 Objective Remarks RUE: dressings clean and dry. intact. NVI. gunslinger brace in pl[tea Assessment & Plan Assessment and Plan 1) Right Proximal Humerus Fx s/p ORIF - POD 1 -NWB -no ROM -maintain gunslinger brace at all times -orthotech to adjust brace today to assure it fits properly -daily dressing changes POD 2 -CM for rehab placement -f/u with Ortho in 2 weeks Fabian Hamm/Moderate Needs Teacher PA Sep 25, 2017 09:52
--- NOTE | 2017-09-25 10:08 | PD.CARD.PN ---
Subjective Subjective Remarks No events overnight ORIF right humerus yesterday, most awake today Objective Medications Current Medications Medications (Trade) Dose Ordered Sig/Ina Route Start Time Stop Time Status Last Admin (Romazicon Inj) 0.2 mg Q1M PRN IV PUSH 09/22/17 11:15 (Ativan) 1 mg Q4H PRN PO 09/22/17 11:15 (Ativan Inj) 1 mg Q4H PRN IV PUSH 09/22/17 11:15 (Ativan) 2 mg Q2H PRN PO 09/22/17 11:15 (Ativan Inj) 2 mg Q2H PRN IV PUSH 09/22/17 11:15 09/22/17 16:17 (Ativan Inj) 2 mg Q1H PRN IV PUSH 09/22/17 11:15 (Ativan Inj) 2 mg Q15M PRN IV PUSH 09/22/17 11:15 Sodium Chloride 1,000 ml @ 70 mls/hr [id number] IV 09/22/17 12:00 09/25/17 05:53 Multivitamins 10 ml/Folic Acid 1 mg/Sodium Chloride 510.2 ml @ 125 mls/hr Q24H IV 09/22/17 14:00 09/27/17 13:59 09/23/17 15:06 Thiamine HCl 100 mg/Sodium Chloride 101 ml @ 100 mls/hr Q24H IV 09/22/17 13:00 09/25/17 12:59 09/23/17 14:02 (Lovenox Inj) 40 mg Q24H SQ 09/22/17 16:00 09/22/17 16:08 (NS Flush) 2 ml UNSCH PRN IV FLUSH 09/22/17 13:00 (NS Flush) 2 ml BID IV FLUSH 09/22/17 21:00 09/23/17 21:00 (Tylenol) 650 mg Q4H PRN PO 09/22/17 13:00 (Zofran Inj) 4 mg Q6H PRN IVP 09/22/17 13:00 (Narcan Inj) 0.4 mg UNSCH PRN IV PUSH 09/22/17 13:00 (Leah-Colace) 1 tab BID PO 09/22/17 21:00 09/25/17 09:19 (Milk Of Magnesia Liq) 30 ml Q12H PRN PO 09/22/17 13:00 (Senokot) 17.2 mg Q12H PRN PO 09/22/17 13:00 (Dulcolax Supp) 10 mg DAILY PRN RECTAL 09/22/17 13:00 (Lactulose Liq) 30 ml DAILY PRN PO 09/22/17 13:00 (Vasotec Inj) 1.25 mg Q6H PRN IV PUSH 09/22/17 13:00 09/23/17 18:41 (Ativan Inj) 2 mg Q10M PRN IV PUSH 09/22/17 13:45 (Aspirin Chew) 81 mg DAILY CHEW 09/23/17 09:00 09/25/17 09:19 (Lopressor) 25 mg Q6HR PO 09/23/17 14:00 09/25/17 05:53 Cefazolin Sodium 2000 mg/Sodium Chloride 120 ml @ 240 mls/hr Q8H IV 09/24/17 17:00 09/26/17 09:29 09/25/17 09:22 ([place] 10-325 Mg) 1 tab Q3H PRN PO 09/24/17 10:45 (Oscal-D 250-125) 250 mg TID PO 09/24/17 13:00 09/25/17 09:19 (Benadryl) 25 mg Q6H PRN PO 09/24/17 10:45 (Morphine Inj) 4 mg Q3H PRN IV PUSH 09/24/17 10:45 (Drisdol) 50,000 units Q7D PO 09/24/17 11:00 (Vitamin D3) 1,000 units DAILY PO 09/25/17 09:00 09/25/17 09:19 Miscellaneous Information ALL NURSING DEPARTME... UNSCH PRN .XX 09/24/17 12:30 09/25/17 12:29 (Norvasc) 10 mg DAILY PO 09/25/17 09:00 09/25/17 09:19 Vital Signs / I&O Vital Signs Date Time Temp Pulse Resp B/P (MAP) Pulse Ox O2 Delivery O2 Flow Rate FiO2 09/25/17 07:42 99.2 76 18 149/60 (89) 97 09/25/17 05:22 98.6 85 18 152/67 (95) 95 09/25/17 00:00 98.7 88 18 135/59 (84) 94 09/25/17 00:00 84 09/24/17 21:21 98.8 87 18 181/72 (108) 93 09/24/17 16:03 100.2 76 18 131/64 (86) 94 09/24/17 11:45 90 16 176/79 (111) 100 Nasal Cannula 2 09/24/17 11:30 84 14 157/76 (103) 95 Nasal Cannula 3 09/24/17 11:15 82 15 178/91 (120) 95 Nasal Cannula 3 09/24/17 11:09 98.2 93 16 159/81 (107) 96 Nasal Cannula 3 I/O 09/24/17 09/24/17 09/24/17 09/25/17 09/25/17 09/25/17 07:00 15:00 23:00 07:00 15:00 23:00 Intake Total 1672 ml 1120 ml Output Total 75 ml 200 ml Balance 1597 ml 920 ml IV Total 1120 ml Platelets 472 ml Other 1200 ml Output Urine Total 200 ml Estimated Blood Loss 75 ml # Voids 6 1 Physical Exam GENERAL: NAD SKIN: Warm and dry. HEAD: Atraumatic. Normocephalic. EYES: Pupils equal and round. No scleral icterus. No injection or drainage. ENT: No nasal bleeding or discharge. Mucous membranes pink and moist. NECK: Trachea midline. No JVD. CARDIOVASCULAR: Irregularly irregular RESPIRATORY: No accessory muscle use. Clear to auscultation. Breath sounds equal bilaterally. GASTROINTESTINAL: Abdomen soft, non-tender, nondistended. Hepatic and splenic margins not palpable. MUSCULOSKELETAL: Extremities without clubbing, cyanosis, or edema. No obvious deformities. NEUROLOGICAL: Awake and alert. No obvious cranial nerve deficits. Motor grossly within normal limits. Five out of 5 muscle strength in the arms and legs. Normal speech. PSYCHIATRIC: Appropriate mood and affect; insight and judgment normal. Laboratory Laboratory Tests Test 09/24/17 15:37 White Blood Count 6.6 TH/MM3 Red Blood Count 2.76 MIL/MM3 Hemoglobin 10.3 GM/DL Hematocrit 29.5 % Mean Corpuscular Volume 106.7 FL Mean Corpuscular Hemoglobin 37.4 PG Mean Corpuscular Hemoglobin Concent 35.1 % Red Cell Distribution Width 13.6 % Platelet Count 89 TH/MM3 Mean Platelet Volume 9.9 FL Neutrophils (%) (Auto) 80.1 % Lymphocytes (%) (Auto) 10.7 % Monocytes (%) (Auto) 8.9 % Eosinophils (%) (Auto) 0.1 % Basophils (%) (Auto) 0.2 % Neutrophils # (Auto) 5.3 TH/MM3 Lymphocytes # (Auto) 0.7 TH/MM3 Monocytes # (Auto) 0.6 TH/MM3 Eosinophils # (Auto) 0.0 TH/MM3 Basophils # (Auto) 0.0 TH/MM3 CBC Comment AUTO DIFF Differential Comment AUTO DIFF CONFIRMED Platelet Estimate LOW Platelet Morphology Comment NORMAL Blood Urea Nitrogen 18 MG/DL Creatinine 0.84 MG/DL Random Glucose 85 MG/DL Calcium Level 8.2 MG/DL Sodium Level 145 MEQ/L Potassium Level 3.8 MEQ/L Chloride Level 107 MEQ/L Carbon Dioxide Level 27.7 MEQ/L Anion Gap 10 MEQ/L Estimat Glomerular Filtration Rate 89 ML/MIN Assessment and Plan Problem List: (1) Altered mental status ICD Codes: R41.82 - Altered mental status, unspecified Status: Acute (2) Atrial fibrillation with RVR ICD Codes: I48.91 - Unspecified atrial fibrillation Status: Acute (3) Right humeral fracture ICD Codes: S42.301A - Unspecified fracture of shaft of humerus, right arm, initial encounter for closed fracture Status: Acute (4) New onset seizure ICD Codes: R56.9 - Unspecified convulsions Status: Acute (5) Alcohol abuse ICD Codes: F10.10 - Alcohol abuse, uncomplicated Status: Chronic Assessment and Plan 1) Possible seizure Further work up per Neuro 2) Afib with RVR Heart rates controlled on low dose BB May be due to his overall ETOH abuse CHADSVASc = 2, not an anti-coagulation candidate due to GI bleeds with heavy drinking as well as concern for complications of his heavy drinking (seizures, varices, etc) ASA 81mg daily 3) HTN Will plan to con't BB and CCB May be due to withdrawal 4) 2D echo pending Jose Dixon DO Sep 25, 2017 10:08
--- NOTE | 2017-09-25 12:09 | HHI.PR ---
Subjective Remarks Follow up encephalopathy/dislocated right shoulder 09/24/17-Patient seen and examined; s/p ORIF right shoulder today, groggy otherwise stable. Case discussed with cardiology. 09/25/17-patient seen and examined, alert and oriented 3. Denies any significant right shoulder pain Objective Vitals Vital Signs Date Time Temp Pulse Resp B/P (MAP) Pulse Ox O2 Delivery O2 Flow Rate FiO2 09/25/17 07:42 99.2 76 18 149/60 (89) 97 09/25/17 05:22 98.6 85 18 152/67 (95) 95 09/25/17 00:00 98.7 88 18 135/59 (84) 94 09/25/17 00:00 84 09/24/17 21:21 98.8 87 18 181/72 (108) 93 09/24/17 16:03 100.2 76 18 131/64 (86) 94 I/O 09/24/17 09/24/17 09/24/17 09/25/17 09/25/17 09/25/17 06:59 14:59 22:59 06:59 14:59 22:59 Intake Total 1672 ml 1120 ml Output Total 75 ml 200 ml Balance 1597 ml 920 ml IV Total 1120 ml Platelets 472 ml Other 1200 ml Output Urine Total 200 ml Estimated Blood Loss 75 ml # Voids 6 1 Result Diagram: 09/24/17 1537 09/24/17 1537 Imaging Last Impressions Shoulder X-Ray 09/24/17 0000 Signed Impressions: Service Date/Time: Sunday, September 24, 2017 10:14 - CONCLUSION: Anatomic alignment. Alexander Bender MD FACR Upper Extremity CT 09/23/17 0000 Signed Impressions: Service Date/Time: Saturday, September 23, 2017 10:39 - CONCLUSION: Highly comminuted and displaced fracture involving the humeral head with large adjacent hematoma. Fracture extends through the greater tuberosities. Stefania Sandoval MD Carotid Artery Ultrasound 09/23/17 0000 Signed Impressions: Service Date/Time: Saturday, September 23, 2017 18:44 - CONCLUSION: Mild carotid atherosclerotic plaque without significant narrowing. Please see above. Tony Solares MD Brain MRI 09/22/17 0936 Signed Impressions: Service Date/Time: Friday, September 22, 2017 12:01 - CONCLUSION: No evidence of acute intracranial abnormality. There is extensive white matter atrophic change , greater than expected for the patient's age.. Stefania Sandoval MD Radius/Ulna X-Ray 09/22/17923 Signed Impressions: Service Date/Time: Friday, September 22, 2017 10:23 - CONCLUSION: Severe degenerative changes and osteopenia. No visualized fracture.. Stefania Sandoval MD Humerus X-Ray 09/22/17923 Signed Impressions: Service Date/Time: Friday, September 22, 2017 10:33 - CONCLUSION: Nondisplaced fracture of the right humeral head at the level of the greater trochanter.. Stefania Sandoval MD Elbow X-Ray 09/22/17923 Signed Impressions: Service Date/Time: Friday, September 22, 2017 10:20 - CONCLUSION: No evidence of fracture. Stefania Sandoval MD Liver Ultrasound 09/22/17 0000 Signed Impressions: Service Date/Time: Friday, September 22, 2017 15:09 - CONCLUSION: Gallstone. Tony Recinos MD Head CT 09/22/17 0000 Signed Impressions: Service Date/Time: Friday, September 22, 2017 09:37 - CONCLUSION: Diffuse white matter atrophic changes, somewhat greater than expected for the patient's age. No evidence of acute abnormality.. Stefania Sandoval MD Chest X-Ray 09/22/17 0000 Signed Impressions: Service Date/Time: Friday, September 22, 2017 10:16 - CONCLUSION: No acute disease. Stefania Sandoval MD Objective Remarks GENERAL: NAD SKIN: Warm and dry. HEAD: Normocephalic. EYES: No scleral icterus. No injection or drainage. NECK: Supple, trachea midline. No JVD or lymphadenopathy. CARDIOVASCULAR: Regular rate and rhythm without murmurs, gallops, or rubs. RESPIRATORY: Breath sounds equal bilaterally. No accessory muscle use. GASTROINTESTINAL: Abdomen soft, non-tender, nondistended. MUSCULOSKELETAL: No cyanosis, or edema. gunslinger brace in place-right shoulder BACK: Nontender without obvious deformity. No CVA tenderness. Procedures Open reduction of right shoulder dislocation, open reduction internal fixation right proximal humerus fracture 09/24/17 A/P Problem List: (1) Altered mental status ICD Code: R41.82 - Altered mental status, unspecified Status: Resolved (2) Atrial fibrillation with RVR ICD Code: I48.91 - Unspecified atrial fibrillation Status: Acute (3) Right humeral fracture ICD Code: S42.301A - Unspecified fracture of shaft of humerus, right arm, initial encounter for closed fracture Status: Acute (4) Alcohol abuse ICD Code: F10.10 - Alcohol abuse, uncomplicated Status: Chronic Assessment and Plan 77-year-old man with 1. Altered mental status-Resolved - CT with white matter atrophy - Neurology consulted, has been seen and evaluated by Dr. Steiner. -EEG negative - PT/ST/OT - Seizure precautions - MRI brain negative for acute event 2. Atrial fibrillation with RVR - Continue metoprolol tartrate -Per Cardiology, patient is not a candidate for OAC - For now aspirin 81 mg daily. 3. R nondisplaced humeral head fracture -Open reduction of right shoulder dislocation, open reduction internal fixation right proximal humerus fracture 09/24/17 -Nonweightbearing -No ROM -maintain gunslinger brace at all times -[employer] to adjust brace today 09/25 to assure it fits properly 4. Alcohol abuse - [facility] protocol - Rally pack - Seizure precautions 5. Hypertension -On metoprolol 25 mg QID, Norvasc 10 mg - Vasotec PRN 6. Hyperglycemia-resolved - HbA1c 5.1 Walker Lezama MD Sep 25, 2017 12:09
[2017-09-25] MEDS: MULTIVITAMIN INJ 10 ML, FOLIC ACID INJ 1 MG in SODIUM CHLORID 0.9% 500 ML INJ 500 ML IV SCH (14:07)
[2017-09-25] MEDS: ENOXAPARIN SODIUM 40 MG/0.4 ML SYRINGE SQ SCH (14:43)
--- NOTE | 2017-09-25 16:26 | ECHRPT ---
Indication: CVA/TIA CONCLUSIONS Normal left ventricular size and wall thickness. The left ventricular systolic function is normal wi th an estimated ejection fraction in the range of 60-65%. No definite wall motion abnormalities. The aortic valve is not well visualized. Mild aortic valve regurgitation. There is trace tricuspid valve regurgitation. The estimated pulmonary arterial pressure is 27 mmHg. BP: / HR: 79 Rhythm: Sinus MEASUREMENTS (Male / Female) Normal Values Technical Quality:Fair 2D ECHO LV Diastolic Diameter PLAX 3.2 cm 4.2 - 5.9 / 3.9 - 5.3 cm LV Systolic Diameter PLAX 2.5 cm IVS Diastolic Thickness 0.8 cm 0.6 - 1.0 / 0.6 - 0.9 cm LVPW Diastolic Thickness 0.8 cm 0.6 - 1.0 / 0.6 - 0.9 cm LV Relative Wall Thickness 0.5 LVOT Diameter 2.2 cm M-MODE Aortic Root Diameter MM 2.8 cm LA Systolic Diameter MM 4.7 cm LA Ao Ratio MM 1.7 AV Cusp Separation MM 2.0 cm DOPPLER AV Peak Velocity 193.0 cm/s AV Peak Gradient 14.9 mmHg AI Peak Velocity 330.5 cm/s AI Peak Gradient 43.7 mmHg AI Pressure Half Time 605.0 ms LVOT Peak Velocity 118.0 cm/s LVOT Peak Gradient 5.6 mmHg AV Area Cont Eq pk 2.3 cm Mitral E Point Velocity 66.6 cm/s Mitral A Point Velocity 68.6 cm/s Mitral E to A Ratio 1.0 LV E' Lateral Velocity 10.5 cm/s Mitral E to LV E' Lateral Ratio 6.3 LV E' Septal Velocity 9.4 cm/s Mitral E to LV E' Septal Ratio 7.1 TR Peak Velocity 209.0 cm/s TR Peak Gradient 17.5 mmHg Right Atrial Pressure 10.0 mmHg Pulmonary Artery Systolic Pressu 27.5 mmHg Right Ventricular Systolic Press 27.5 mmHg PV Peak Velocity 85.5 cm/s PV Peak Gradient 2.9 mmHg FINDINGS LEFT VENTRICLE Normal left ventricular size and wall thickness. The left ventricular systolic function is normal wi th an estimated ejection fraction in the range of 60-65%. No definite wall motion abnormalities. RIGHT VENTRICLE Normal right ventricular size and systolic function. LEFT ATRIUM The left atrial size is upper limits of normal. RIGHT ATRIUM The right atrial size is normal. ATRIAL SEPTUM Normal atrial septal thickness without atrial level shunting by limited color doppler interrogation. AORTA The aortic root and proximal ascending aorta are normal in size on limited imaging. MITRAL VALVE Structurally normal mitral valve. No mitral valve stenosis or regurgitation. AORTIC VALVE The aortic valve is not well visualized. Mild aortic valve regurgitation. TRICUSPID VALVE There is trace tricuspid valve regurgitation. The estimated pulmonary arterial pressure is 27 mmHg. PULMONARY VALVE No pulmonary valve regurgitation or stenosis. VESSELS The inferior vena cava is normal in size. PERICARDIUM No pericardial effusion. Sanya Guzmán MD (Electronically Signed) Final Date:25 September 2017 16:25
[2017-09-26] VITALS (7 sets, daily range): BP systolic 114–155; BP diastolic 55–70; PULSE 67–85; RESP 17–20; TEMP 97.7–100; O2SAT 95–98
[2017-09-26] MEDS: METOPROLOL TARTRATE 25 MG TAB PO SCH ×3 (00:33→11:32)
[2017-09-26] MEDS: CEFAZOLIN INJ 2,000 MG in SODIUM CHLORIDE 0.9% INJ 100 ML IV SCH ×2 (00:33→08:44)
[2017-09-26] MEDS: SODIUM CHLOR 0.9% 1000 ML INJ 1,000 ML IV SCH (01:48)
--- NOTE | 2017-09-26 07:40 | PD.ORT.PN ---
Subjective Subjective Remarks POD 2 s/p ORIF right proximal humerus fx resting comfortably.no changes Objective Vitals Vital Signs Date Time Temp Pulse Resp B/P (MAP) Pulse Ox O2 Delivery O2 Flow Rate FiO2 09/26/17 04:56 99.4 76 20 132/62 (85) 97 09/26/17 00:37 100.0 80 20 130/61 (84) 95 09/25/17 20:18 98.4 89 20 139/64 (89) 95 09/25/17 16:00 95.5 80 20 131/59 (83) 97 09/25/17 12:02 99.0 85 18 136/73 (94) 95 09/25/17 11:55 91 09/25/17 07:56 76 09/25/17 07:42 99.2 76 18 149/60 (89) 97 I/O 09/25/17 09/25/17 09/25/17 09/26/17 09/26/17 09/26/17 07:00 15:00 23:00 07:00 15:00 23:00 Intake Total 1120 ml 720 ml Output Total 200 ml 350 ml Balance 920 ml 720 ml -350 ml Intake Oral 720 ml IV Total 1120 ml Output Urine Total 200 ml 350 ml # Voids 1 3 Result Diagram: 09/24/17 1537 09/24/17 1537 Objective Remarks RUE: dressings clean and dry. intact. NVI. gunslinger brace in pl[tea Assessment & Plan Assessment and Plan 1) Right Proximal Humerus Fx s/p ORIF - POD 2 -NWB -no ROM -maintain gunslinger brace at all times -[employer] to adjust brace today to assure it fits properly -daily dressing changes POD 2 -CM for rehab placement -f/u with Ortho in 2 weeks Fabian Hamm/[employer] PA Sep 26, 2017 07:40
[2017-09-26] MEDS: CHOLECALCIFEROL (VIT D3) 1000 UNIT TAB PO SCH (08:43)
[2017-09-26] MEDS: SODIUM CHLORIDE 0.9% FLUSH 10 ML FLUSH IV FLUSH SCH (08:44)
[2017-09-26] MEDS: DOCUSATE SODIUM 50 MG/SENNA 8.6 MG TAB PO SCH (08:44)
[2017-09-26] MEDS: CALCIUM/VITAMIN D 250 MG/125 U TAB PO SCH ×2 (08:44→14:43)
[2017-09-26] MEDS: ASPIRIN 81 MG CHEW TAB CHEW SCH (08:44)
[2017-09-26] MEDS ORDERED: THIAMINE HCL 100 MG TAB PO SCH (09:00)
[2017-09-26 09:14] LABS: AUTOMATED NEUTROPHIL # 2.9 TH/MM3 (1.8-7.7); BASOPHIL % 0.4 % (0.0-2.0); EOSINOPHIL # 0.3 TH/MM3 (0-0.4); EOSINOPHIL % 5.5 % (0.0-4.0); HEMATOCRIT 32.4 % (39.0-51.0); LYMPH % 27.5 % (9.0-44.0); LYMPHOCYTE # 1.4 TH/MM3 (1.0-4.8); MEAN CELL VOLUME 87.4 FL (80.0-100.0); MEAN CORPUSCULAR HEMOGLOBIN 29.7 PG (27.0-34.0); MEAN PLATELET VOLUME 9.1 FL (7.0-11.0); MONO % 11.5 % (0.0-8.0); MONOCYTE # 0.6 TH/MM3 (0-0.9); NEUT % 55.1 % (16.0-70.0); PLATELET COUNT 99 TH/MM3 (150-450); RED BLOOD COUNT 3.71 MIL/MM3 (4.50-5.90); RED CELL DISTRIBUTION WIDTH 15.6 % (11.6-17.2); WHITE BLOOD COUNT 5.3 TH/MM3 (4.0-11.0)
[2017-09-26 10:08] LABS: ACANTHOCYTES OCC (NORMAL); OVALOCYTES 1+ (NORMAL)
--- NOTE | 2017-09-26 11:38 | HHI.PR ---
Subjective Remarks Follow up encephalopathy/dislocated right shoulder 09/24/17-Patient seen and examined; s/p ORIF right shoulder today, groggy otherwise stable. Case discussed with cardiology. 09/25/17-patient seen and examined, alert and oriented 3. Denies any significant right shoulder pain 09/26/17-patient seen and examined, no acute event overnight and ready for discharge. Right shoulder pain well controlled Objective Vitals Vital Signs Date Time Temp Pulse Resp B/P (MAP) Pulse Ox O2 Delivery O2 Flow Rate FiO2 09/26/17 08:00 98.6 76 19 155/68 (97) 96 09/26/17 04:56 99.4 76 20 132/62 (85) 97 09/26/17 00:37 100.0 80 20 130/61 (84) 95 09/25/17 20:18 98.4 89 20 139/64 (89) 95 09/25/17 16:00 95.5 80 20 131/59 (83) 97 09/25/17 12:02 99.0 85 18 136/73 (94) 95 09/25/17 11:55 91 I/O 09/25/17 09/25/17 09/25/17 09/26/17 09/26/17 09/26/17 07:00 15:00 23:00 07:00 15:00 23:00 Intake Total 1120 ml 720 ml Output Total 200 ml 350 ml Balance 920 ml 720 ml -350 ml Intake Oral 720 ml IV Total 1120 ml Output Urine Total 200 ml 350 ml # Voids 1 3 Result Diagram: 09/26/17 0835 09/24/17 1537 Imaging Last Impressions Shoulder X-Ray 09/24/17 0000 Signed Impressions: Service Date/Time: Sunday, September 24, 2017 10:14 - CONCLUSION: Anatomic alignment. Alexander Bender MD FACR Upper Extremity CT 09/23/17 0000 Signed Impressions: Service Date/Time: Saturday, September 23, 2017 10:39 - CONCLUSION: Highly comminuted and displaced fracture involving the humeral head with large adjacent hematoma. Fracture extends through the greater tuberosities. Stefania Sandoval MD Carotid Artery Ultrasound 09/23/17 0000 Signed Impressions: Service Date/Time: Saturday, September 23, 2017 18:44 - CONCLUSION: Mild carotid atherosclerotic plaque without significant narrowing. Please see above. Tony Solares MD Brain MRI 09/22/1736 Signed Impressions: Service Date/Time: Friday, September 22, 2017 12:01 - CONCLUSION: No evidence of acute intracranial abnormality. There is extensive white matter atrophic change , greater than expected for the patient's age.. Stefania Sandoval MD Radius/Ulna X-Ray 09/22/17923 Signed Impressions: Service Date/Time: Friday, September 22, 2017 10:23 - CONCLUSION: Severe degenerative changes and osteopenia. No visualized fracture.. Stefania Sandoval MD Humerus X-Ray 09/22/17923 Signed Impressions: Service Date/Time: Friday, September 22, 2017 10:33 - CONCLUSION: Nondisplaced fracture of the right humeral head at the level of the greater trochanter.. Stefania Sandoval MD Elbow X-Ray 09/22/17923 Signed Impressions: Service Date/Time: Friday, September 22, 2017 10:20 - CONCLUSION: No evidence of fracture. Stefania Sandoval MD Liver Ultrasound 09/22/17 Signed Impressions: Service Date/Time: Friday, September 22, 2017 15:09 - CONCLUSION: Gallstone. Tony Recinos MD Head CT 09/22/17 Signed Impressions: Service Date/Time: Friday, September 22, 2017 09:37 - CONCLUSION: Diffuse white matter atrophic changes, somewhat greater than expected for the patient's age. No evidence of acute abnormality.. Stefania Sandoval MD Chest X-Ray 09/22/17 Signed Impressions: Service Date/Time: Friday, September 22, 2017 10:16 - CONCLUSION: No acute disease. Stefania Sandoval MD Objective Remarks GENERAL: NAD SKIN: Warm and dry. HEAD: Normocephalic. EYES: No scleral icterus. No injection or drainage. NECK: Supple, trachea midline. No JVD or lymphadenopathy. CARDIOVASCULAR: Regular rate and rhythm without murmurs, gallops, or rubs. RESPIRATORY: Breath sounds equal bilaterally. No accessory muscle use. GASTROINTESTINAL: Abdomen soft, non-tender, nondistended. MUSCULOSKELETAL: No cyanosis, or edema. gunslinger brace in place-right shoulder BACK: Nontender without obvious deformity. No CVA tenderness. Procedures Open reduction of right shoulder dislocation, open reduction internal fixation right proximal humerus fracture 09/24/17 A/P Problem List: (1) Altered mental status ICD Code: R41.82 - Altered mental status, unspecified Status: Resolved (2) Atrial fibrillation with RVR ICD Code: I48.91 - Unspecified atrial fibrillation Status: Acute (3) Right humeral fracture ICD Code: S42.301A - Unspecified fracture of shaft of humerus, right arm, initial encounter for closed fracture Status: Acute (4) Alcohol abuse ICD Code: F10.10 - Alcohol abuse, uncomplicated Status: Chronic Assessment and Plan 77-year-old man with 1. Altered mental status-Resolved - CT with white matter atrophy - Neurology consulted, has been seen and evaluated by Dr. Steiner. -EEG negative - PT/ST/OT - Seizure precautions - MRI brain negative for acute event 2. Atrial fibrillation with RVR - Continue metoprolol tartrate -Per Cardiology, patient is not a candidate for OAC - For now aspirin 81 mg daily. 3. R nondisplaced humeral head fracture -Open reduction of right shoulder dislocation, open reduction internal fixation right proximal humerus fracture 09/24/17 -Nonweightbearing -No ROM -maintain gunslinger brace at all times 4. Alcohol abuse - [facility] protocol - Rally pack - Seizure precautions 5. Hypertension -On metoprolol 25 mg QID, Norvasc 10 mg - Vasotec PRN 6. Hyperglycemia-resolved - HbA1c 5.1 Walker Lezama MD Sep 26, 2017 11:38
--- NOTE | 2017-09-26 11:46 | HHI.DS ---
Discharge Summary Admission Date Sep 22, 2017 at 10:50 Discharge Date: Sep 26, 2017 Admitting Diagnosis New onset A. fib with RVR/stroke alert (1) Altered mental status ICD Code: R41.82 - Altered mental status, unspecified Status: Resolved (2) Atrial fibrillation with RVR ICD Code: I48.91 - Unspecified atrial fibrillation Status: Acute (3) Right humeral fracture ICD Code: S42.301A - Unspecified fracture of shaft of humerus, right arm, initial encounter for closed fracture Status: Acute (4) Alcohol abuse ICD Code: F10.10 - Alcohol abuse, uncomplicated Status: Chronic Procedures Open reduction of right shoulder dislocation, open reduction internal fixation right proximal humerus fracture 09/24/17 Brief History - From Admission 77 year old right-handed male with history of alcohol abuse presented to the ER via EMS after his found him unresponsive on the living room floor this morning. History is limited from the patient as he is a poor historian and doesn't recall today's events. Spoke with , Brenda Samaniego, on the phone who was able to provide additional history. Per his , she was in her bedroom and recalls he was talking but couldn't understand what he was saying. She states when she went out into the living room after about thirty minutes he was on the ground unresponsive and was bleeding from his mouth. She states he was not incontinent of urine or feces. He came to when EMS arrived but she states he was very confused and would not answer questions or talk. He opened his eyes but did not follow commands. Per EMS, the patient did not move the right side of his body and therefore a stroke alert was called in the field. His states she did not witness any convulsions as she did not see the actual event. She is unaware if the patient has ever had a seizure but the patient informs me that he has had one a "few years ago" that he believes was related to drinking too much alcohol. He states he drinks "two cups" of whiskey a day as well as a "couple beers." He denies abruptly discontinuing but his thinks he wasn't drinking as much in the past two days. She also reports that the patient had two episodes of nonbloody emesis this morning prior to the events but has otherwise been in his normal state of health. He states he hasn' t seen a doctor in several years and denies being diagnosed with any medical problems. He does not take any medications on a regular basis. He denies headache, slurred speech, diplopia, loss of balance, dizziness, paresthesias, weakness, or difficulty reading. His only complaint is pain in his right elbow that he noticed in the hospital. He does not recall falling or injuring it. Pain is exacerbated with any movement of his right arm and with direct pressure over his elbow. He also endorses feeling shaky. On admission, he was found to be in atrial fibrillation with RVR and states he has never had any cardiac conditions. He denies chest pain, shortness of breath, or palpitations. He reports in the past he has had blood in his stool when he drinks heavily; he cannot recall ever vomiting blood. He has never had a colonoscopy. CBC/BMP: 09/26/17 0835 09/24/17 1537 Significant Findings Laboratory Tests Test 09/24/17 15:37 09/26/17 08:35 Red Blood Count 2.76 MIL/MM3 (4.50-5.90) 3.71 MIL/MM3 (4.50-5.90) Hemoglobin 10.3 GM/DL (13.0-17.0) 11.0 GM/DL (13.0-17.0) Hematocrit 29.5 % (39.0-51.0) 32.4 % (39.0-51.0) Mean Corpuscular Volume 106.7 FL (80.0-100.0) Mean Corpuscular Hemoglobin 37.4 PG (27.0-34.0) Platelet Count 89 TH/MM3 (150-450) 99 TH/MM3 (150-450) Neutrophils (%) (Auto) 80.1 % (16.0-70.0) Monocytes (%) (Auto) 8.9 % (0.0-8.0) 11.5 % (0.0-8.0) Lymphocytes # (Auto) 0.7 TH/MM3 (1.0-4.8) Platelet Estimate LOW (NORMAL) LOW (NORMAL) Calcium Level 8.2 MG/DL (8.5-10.1) Eosinophils (%) (Auto) 5.5 % (0.0-4.0) Ovalocytes 1+ (NORMAL) Imaging Last Impressions Shoulder X-Ray 09/24/17 Signed Impressions: Service Date/Time: Sunday, September 24, 2017 10:14 - CONCLUSION: Anatomic alignment. Alexander Bender MD FACR Upper Extremity CT 09/23/17 Signed Impressions: Service Date/Time: Saturday, September 23, 2017 10:39 - CONCLUSION: Highly comminuted and displaced fracture involving the humeral head with large adjacent hematoma. Fracture extends through the greater tuberosities. Stefania Sandoval MD Carotid Artery Ultrasound 09/23/17 Signed Impressions: Service Date/Time: Saturday, September 23, 2017 18:44 - CONCLUSION: Mild carotid atherosclerotic plaque without significant narrowing. Please see above. Tony Solares MD Brain MRI 09/22/17935 Signed Impressions: Service Date/Time: Friday, September 22, 2017 12:01 - CONCLUSION: No evidence of acute intracranial abnormality. There is extensive white matter atrophic change , greater than expected for the patient's age.. Stefania Sandoval MD Radius/Ulna X-Ray 09/22/17923 Signed Impressions: Service Date/Time: Friday, September 22, 2017 10:23 - CONCLUSION: Severe degenerative changes and osteopenia. No visualized fracture.. Stefania Sandoval MD Humerus X-Ray 09/22/17923 Signed Impressions: Service Date/Time: Friday, September 22, 2017 10:33 - CONCLUSION: Nondisplaced fracture of the right humeral head at the level of the greater trochanter.. Stefania Sandoval MD Elbow X-Ray 09/22/17923 Signed Impressions: Service Date/Time: Friday, September 22, 2017 10:20 - CONCLUSION: No evidence of fracture. Stefania Sandoval MD Liver Ultrasound 09/22/17 Signed Impressions: Service Date/Time: Friday, September 22, 2017 15:09 - CONCLUSION: Gallstone. Tony Recinos MD Head CT 09/22/17 Signed Impressions: Service Date/Time: Friday, September 22, 2017 09:37 - CONCLUSION: Diffuse white matter atrophic changes, somewhat greater than expected for the patient's age. No evidence of acute abnormality.. Stefania Sandoval MD Chest X-Ray 09/22/17 0000 Signed Impressions: Service Date/Time: Friday, September 22, 2017 10:16 - CONCLUSION: No acute disease. Stefania Sandoval MD PE at Discharge GENERAL: NAD SKIN: Warm and dry. HEAD: Normocephalic. EYES: No scleral icterus. No injection or drainage. NECK: Supple, trachea midline. No JVD or lymphadenopathy. CARDIOVASCULAR: Regular rate and rhythm without murmurs, gallops, or rubs. RESPIRATORY: Breath sounds equal bilaterally. No accessory muscle use. GASTROINTESTINAL: Abdomen soft, non-tender, nondistended. MUSCULOSKELETAL: No cyanosis, or edema. gunslinger brace in place-right shoulder BACK: Nontender without obvious deformity. No CVA tenderness. Hospital Course While in the hospital, patient was treated for: 1. Altered mental status-Resolved - CT with white matter atrophy - Neurology consulted, has been seen and evaluated by Dr. Steiner. -EEG negative - PT/ST/OT - Seizure precautions - MRI brain negative for acute event 2. Atrial fibrillation with RVR - Treated with metoprolol tartrate -Per Cardiology, patient is not a candidate for OAC - Discharge home on aspirin 81 mg daily. 3. R nondisplaced humeral head fracture -Open reduction of right shoulder dislocation, open reduction internal fixation right proximal humerus fracture 09/24/17 -Nonweightbearing -No ROM -maintain gunslinger brace at all times 4. Alcohol abuse - [facility] protocol - Rally pack - Seizure precautions 5. Hypertension -Treated with metoprolol 25 mg QID, Norvasc 10 mg - Vasotec PRN 6. Hyperglycemia-resolved - HbA1c 5.1 Pt Condition on Discharge: Good Discharge Disposition: Discharge to SNF Discharge Time: > 30 minutes Discharge Instructions DIET: Follow Instructions for: Heart Healthy Diet Activities you can perform: Non Weight Bearing Other Activity Instructions: NWB Right upper extremity no ROM Right upper extremity maintain gunslinger brace at all times Follow up Referrals: Cardiology Neurology Orthopedics PCP Follow-up - 2-3 Days New Medications: Amlodipine (Norvasc) 10 Mg Tab 10 MG PO DAILY for Blood Pressure Management, #30 TAB 3 Refills Aspirin (Tgt Aspirin) 81 Mg Chw 81 MG CHEW DAILY for Prevent Blood Clot, #30 EA Hydrocodone/Acetaminophen (Hydrocodone-Acetamin 10-325 mg) 10 Mg-325 Mg Tablet 1 TAB PO Q3H PRN for pain 2<10, #20 TAB Metoprolol Tartrate (Metoprolol Tartrate) 25 Mg Tab 25 MG PO Q6HR for Blood Pressure Management, #120 TAB 3 Refills Thiamine HCl (Gnp Vitamin B-1) 100 Mg Tab 100 MG PO DAILY for Alcohol Detox, #30 TAB Continued Medications: Calcium/Vitamin D (Oscal-D 250 MG /125 UNITS Tab) 250 Mg/125 Units Tab 1 TAB PO TID, #90 TAB Docusate Sodium (Colace 100 Mg Cap) 100 Mg Cap 100 MG PO BID, #60 CAP Multiple Vitamin (Multivitamin) 1 Tab Tab Discontinued Medications: Hydrocodone-Acetaminophen 7.5-325 mg ([place] 7.5-325 mg) 7.5 Mg/325 Mg Tab 1 TAB PO Q4-6 HOURS PRN for PAIN, #40 TAB Walker Lezama MD Sep 26, 2017 11:46
[2017-09-26] MEDS ORDERED: AMLO10 PO (11:52)
[2017-09-26] MEDS ORDERED: ASPI81 CHEW (11:52)
[2017-09-26] MEDS ORDERED: METO25TA3 PO (11:52)
[2017-09-26] MEDS ORDERED: THIA100 PO (11:52)
[2017-09-26] MEDS ORDERED: HYDR-3583 PO (11:52)
[2017-09-26] MEDS: MULTIVITAMIN INJ 10 ML, FOLIC ACID INJ 1 MG in SODIUM CHLORID 0.9% 500 ML INJ 500 ML IV SCH (14:43)
[2017-09-27 08:50] LABS: METHYLMALONIC ACID 0.11 nmol/mL (<=0.40)
== END 2017-09-26 17:54 | DRG 493 ==
LOC: NEPC 09:10 → NEDA 10:50 → NEDH 15:04 → N05B 17:17
PROVIDERS: ADMIT Hospitalist; ATTEND Hospitalist
PROC: 0RSJ0ZZ Reposition Right Shoulder Joint, Open Approach (ICD-10-PCS; 2017-09-24)
PROC: 30233R1 Transfusion of Nonautologous Platelets into Peripheral Vein, Percutaneous Approach (ICD-10-PCS; 2017-09-24)
PROC: 0PSF04Z Reposition Right Humeral Shaft with Internal Fixation Device, Open Approach (ICD-10-PCS; principal; 2017-09-24 08:48)
DX: S42.291A Other displaced fracture of upper end of right humerus, initial encounter for closed fracture (principal); G81.91 Hemiplegia, unspecified affecting right dominant side; D69.6 Thrombocytopenia, unspecified; F10.239 Alcohol dependence with withdrawal, unspecified; I48.91 Unspecified atrial fibrillation; D75.89 Other specified diseases of blood and blood-forming organs; I10 Essential (primary) hypertension; R56.9 Unspecified convulsions; I87.8 Other specified disorders of veins; W19.XXXA Unspecified fall, initial encounter; Y93.9 Activity, unspecified; Y92.9 Unspecified place or not applicable; Y99.9 Unspecified external cause status; R73.9 Hyperglycemia, unspecified; E78.00 Pure hypercholesterolemia, unspecified; R41.82 Altered mental status, unspecified
CPT/HCPCS: 36415; 36430; 70450; 70553; 71045; 73030; 73060; 73070; 73090; 73200; 76000; 76705; 80048; 80053; 80061; 80307; 81001; 82140; 82550; 82607; 83036; 83735; 83921; 84425; 84439; 84443; 84450; 84460; 84484; 85025; 85384; 85610; 85652; 85730; 86038; 86592; 86850; 86900; 86901; 93005; 93306; 93880; 95819; A9579; C1713; J0690; J1580; J1650; J2060; J2270; J2405; J3010; J3370; J3411; J7030; J7040; P9031

== ENCOUNTER 2018-06-26 09:00 | Observation (INO) ==
--- NOTE | 2018-06-26 09:20 | ED ---
HPI General Chief Complaint: Altered Mental Status Stated Complaint: Altered mental Time Seen by Provider: 06/26/18 09:04 Source: patient and EMS Mode of arrival: EMS Limitations: altered mental status History of Present Illness HPI narrative: Patient is a 78-year-old male who presents with complaint of possible seizure. He was brought in by EMS whom state that he was postictal appearing on their arrival. Per his he was unresponsive with abnormal shaking movements for several minutes this morning this is never happened before and he does not have a known seizure disorder. He has otherwise been well but did fall several times last night. He is not on blood thinners but does take aspirin. No fevers. He does drink alcohol but not daily. MD complaint: Reports altered mental status, confusion and other Context: Reports trauma Related Data Allergies Allergy/AdvReac Type Severity Reaction Status Date / Time codeine Allergy Mild n/v Unverified 01/30/17 18:04 Review of Systems ROS Unobtainable ROS Unobtainable: unobtainable due to mental status ROS: all other systems reviewed are negative [facility] Medical History Medical History HTN (hypertension) (Acute) Surgical History Surgical History H/O shoulder surgery (Acute) Social History Social History Substance History: No History of Abuse Second Hand Smoke Exposure: No Smoking Status: Former smoker How Often Do You Have a Drink Containing Alcohol: 4 or more times a week Recent Travel in [place] within the Last 8 Weeks: No Recent Out of Country Travel within the Last 8 Weeks: No Immunization History Tetanus Immunization: Unsure Exam Narrative Exam Narrative: GENERAL: Well-appearing male in no acute distress SKIN: Focused skin assessment warm/dry. Bruising to chin. HEAD: Atraumatic. Normocephalic. EYES: Pupils equal and round. No scleral icterus. No injection or drainage. ENT: No nasal bleeding or discharge. Mucous membranes pink and moist. Bruising to the tongue that appears to be secondary to bite kelly. NECK: Trachea midline. No JVD. CARDIOVASCULAR: Regular rate and rhythm. No murmur appreciated. RESPIRATORY: No accessory muscle use. Clear to auscultation. Breath sounds equal bilaterally. GASTROINTESTINAL: Abdomen soft, non-tender, nondistended. Hepatic and splenic margins not palpable. MUSCULOSKELETAL: No obvious deformities. No clubbing. No cyanosis. No edema. NEUROLOGICAL: Awake and alert. No obvious cranial nerve deficits. Motor grossly within normal limits. Normal speech. No tremor. PSYCHIATRIC: Appropriate mood and affect; insight and judgment normal. Course Initial Documented Vital Signs Temperature 99.8 F H 06/26/18 09:10 Pulse Rate 101 H 06/26/18 09:10 Respiratory Rate 21 06/26/18 09:10 Blood Pressure 169/79 H 06/26/18 09:10 Pulse Oximetry 92 L 06/26/18 09:10 Last Documented Vital Signs Temperature 99.8 F H 06/26/18 09:10 Pulse Rate 91 H 06/26/18 10:30 Respiratory Rate 21 06/26/18 09:10 Blood Pressure 163/78 H 06/26/18 10:30 Pulse Oximetry 97 06/26/18 09:12 Medical Decision Making MDM Narrative Medical decision making narrative: Patient is a 78-year-old male with unknown who presents after a possible syncope versus seizure. I do not have a medication list I do not know if he is on beta blockers or other medications that could cause a seizure or mask tachycardia. His heart rate has intermittently gone to the 100s and he was given a small dose of Ativan without any improvement. He is slightly confused here but alert and will follow commands. No focal neurologic deficits at this time. CT head does not show an etiology. Labs and EKG were otherwise unremarkable. I spoke with Dr. Tran, hospitalist production repairer, who agreed to an observation admission for further workup and evaluation of this seizure versus syncope. Medical Screen Exam Complete: Yes Emergency Medical Condition: Yes Differential Diagnosis Differential Diagnosis: Differential diagnosis includes but is not limited to intracranial injury, alcohol withdrawal, electrolyte abnormality. Medical Records Medical records reviewed: Yes I reviewed the patient's medical records. Lab Data Lab results reviewed: Yes I reviewed the patient's lab results. Result diagrams: 06/26/18 09:15 06/26/18 09:15 Lab Results 06/26/18 06/26/18 06/26/18 Range/Units 09:15 09:15 09:15 WBC 12.4 H (4.0-11.0) th/mm3 RBC 3.89 L (4.50-5.90) mil/mm3 Hgb 14.1 (13.0-17.0) gm/dL Hct 40.9 (39.0-51.0) % MCV 105.1 H (80.0-100.0) fL MCH 36.3 H (27.0-34.0) pg MCHC 34.5 (32.0-36.0) % RDW 13.7 (11.6-17.2) % Plt Count 131 L (150-450) th/mm3 MPV 8.4 (7.0-11.0) fL Neut % (Auto) 91.9 H (16.0-70.0) % Lymph % (Auto) 1.3 L (9.0-44.0) % [place] % (Auto) 6.6 (0.0-8.0) % Eos % (Auto) 0.0 (0.0-4.0) % Baso % (Auto) 0.2 (0.0-2.0) % Neut # (Auto) 11.4 H (1.8-7.7) th/mm3 Lymph # (Auto) 0.2 L (1.0-4.8) th/mm3 [place] # (Auto) 0.8 (0.0-0.9) th/mm3 Eos # (Auto) 0.0 (0.0-0.4) th/mm3 Baso # (Auto) 0.0 (0.0-0.2) th/mm3 WBC Differential . Differential Comment Auto diff final Sodium 138 (136-145) meq/L Potassium 3.4 L (3.5-5.1) meq/L Chloride 104 (98-107) meq/L Carbon Dioxide 24.4 (21.0-32.0) meq/L Anion Gap 10 (5-15) meq/L BUN 8 (7-18) mg/dL Creatinine 1.09 (0.60-1.30) mg/dL Estimated GFR 65 L (>89) mL/min Random Glucose 187 H (74-106) mg/dL Calcium 8.5 (8.5-10.1) mg/dL Magnesium 1.7 (1.5-2.5) mg/dL Total Bilirubin 1.2 H (0.2-1.0) mg/dL AST 47 H (15-37) U/L ALT 33 (12-78) U/L Alkaline Phosphatase 108 (45-117) U/L Ammonia 17 (11-32) mcmol/L Troponin I Less than 0.02 L (0.02-0.05) ng/mL Total Protein 6.9 (6.4-8.2) g/dL Albumin 3.4 (3.4-5.0) g/dL Imaging Data Attestation: I personally reviewed and interpreted this imaging study as follows : Radiologist's impression: Head CT 06/26/18 09:09 CONCLUSION: Atrophy, otherwise negative for an acute process. Alexander Bender MD FACR . Cervical Spine CT 06/26/18 09:10 CONCLUSION: Degenerative spondylosis without any significant compromise to the exiting nerve roots or the thecal sac. ECG Data EKG Prior to Arrival: No Attestation: I personally reviewed and interpreted this ECG as follows: Discharge Plan Discharge Disposition Patient Disposition: ED Admit(ED Internal Use Only) Discharge Condition Condition: Stable Discharge Order Discharge Orders: ED Use Only Admit Order (Routine); Ordered 06/26/18 Ordered By: Viky Perry Discharge Details Diagnosis: Seizure, CHI (closed head injury) Physicians Team ED Provider: Viky Perry Primary Care Provider: Primary Care Physici,No Attending Provider: Walker Lezama Discharge Interventions Interventions: Vital Signs Last Done: 06/26/18 10:30 Status ED Status: Admitted Observation Patient
[2018-06-26 09:29] LABS: Baso % (Auto) 0.2 % (0.0-2.0); Hematocrit 40.9 % (39.0-51.0); Hemoglobin 14.1 gm/dL (13.0-17.0); Lymph # (Auto) 0.2 th/mm3 (1.0-4.8); Lymph % (Auto) 1.3 % (9.0-44.0); Mean Corpuscular HGB Conc 34.5 % (32.0-36.0); Mean Corpuscular Hemoglobin 36.3 pg (27.0-34.0); Mean Corpuscular Volume 105.1 fL (80.0-100.0); Mean Platelet Volume 8.4 fL (7.0-11.0); Mono # (Auto) 0.8 th/mm3 (0.0-0.9); Mono % (Auto) 6.6 % (0.0-8.0); Neut # (Auto) 11.4 th/mm3 (1.8-7.7); Neut % (Auto) 91.9 % (16.0-70.0); Platelet Count 131 th/mm3 (150-450); Red Blood Count 3.89 mil/mm3 (4.50-5.90); Red Cell Distribution Width 13.7 % (11.6-17.2); White Blood Count 12.4 th/mm3 (4.0-11.0)
[2018-06-26] MEDS ORDERED: Thiamine Inj 100 MG in Sodium Chlor 0.9% Inj 100 ML IV.SIG ONE (09:31)
--- NOTE | 2018-06-26 09:31 | CT ---
EXAM DATE: 06/26/2018 9:25 AM EST AGE/SEX: 78 years / Male INDICATIONS: Altered mental status, numerous falls. CLINICAL DATA: This is the patient's initial encounter. Patient reports that signs and symptoms have been present for 1 day and indicates a pain score of 0/10. MEDICAL/SURGICAL HISTORY: None. None. RADIATION DOSE: 66.34 CTDI (mGy) [place] [facility] [place]. . TECHNIQUE: CT of the head without contrast. Using automated exposure control and adjustment of the mA and/or kV according to patient size, radiation dose was kept as low as reasonably achievable to ob tain optimal diagnostic quality images. DICOM format image data is available electronically for revi ew and comparison. FINDINGS: There is central and cortical atrophy with dilatation of ventricular and sulcal spaces. There is no parenchymal hemorrhage, acute infarction or mass lesion identified. There are no extra-axial fluid c ollections appreciated. Periventricular white matter changes are noted. Atrophy is most notable full in the posterior fossa. The portion of the orbits and paranasal sinuses visualized are unremarkable. CONCLUSION: Atrophy, otherwise negative for an acute process. Alexander Bender MD FACR . Electronically signed by: Alexander Bender MD Board Certified Radiologist 06/26/2018 9:29 AM EST
--- NOTE | 2018-06-26 09:43 | CT ---
EXAM DATE: 06/26/2018 9:32 AM EST AGE/SEX: 78 years / Male INDICATIONS: Altered mental status, numerous falls. CLINICAL DATA: This is the patient's initial encounter. Patient reports that signs and symptoms have been present for 1 day and indicates a pain score of 0/10. MEDICAL/SURGICAL HISTORY: None. None. RADIATION DOSE: 23.74 CTDI (mGy) [place] [facility] [place] 10/26/2012. . TECHNIQUE: Contiguous axial images were obtained using helical multirow detector technique. The vol umetric data was post-processed with multiplanar reconstruction in oblique axial, sagittal, and coron al planes. Using automated exposure control and adjustment of the mA and/or kV according to patient s ize, radiation dose was kept as low as reasonably achievable to obtain optimal diagnostic quality jaime ges. DICOM format image data is available electronically for review and comparison. FINDINGS: No significant subluxation or soft tissue swelling is seen. No definite fracture is identified for technique. C2-C3: No appreciable compromise to the thecal sac, exiting nerve roots are seen. The neural foramin a are patent bilaterally. No appreciable thecal sac stenosis is seen. C3-C4: No appreciable compromise to the thecal sac, exiting nerve roots are seen. The neural foramin a are patent bilaterally. No appreciable thecal sac stenosis is seen. C4-C5: No appreciable compromise to the thecal sac, exiting nerve roots are seen. The neural foramin a are patent bilaterally. No appreciable thecal sac stenosis is seen. C5-C6: No appreciable compromise to the thecal sac, exiting nerve roots are seen. The neural foramin a are patent bilaterally. No appreciable thecal sac stenosis is seen. Moderate degenerative changes a re present in the disc space and facets. Slight bulging disc and hypertrophic changes are seen with i ndentation on the thecal sac and no significant compromise to the thecal sac or the exiting nerve ismael ts. C6-C7: No appreciable compromise to the thecal sac, exiting nerve roots are seen. The neural foramin a are patent bilaterally. No appreciable thecal sac stenosis is seen. Moderate degenerative changes a re present in the disc space and facets. Slight bulging disc and hypertrophic changes are seen with indentation on the thecal sac and no signi ficant compromise to the thecal sac or the exiting nerve roots. C7-T1: No appreciable compromise to the thecal sac, exiting nerve roots are seen. The neural foramin a are patent bilaterally. No appreciable thecal sac stenosis is seen. Moderate degenerative changes a re present in the disc space and facets. CONCLUSION: Degenerative spondylosis without any significant compromise to the exiting nerve roots o r the thecal sac. Electronically signed by: Stuart Wilkerson MD Board Certified Radiologist 06/26/2018 9:42 AM EST
[2018-06-26 09:46] LABS: Albumin 3.4 g/dL (3.4-5.0); Anion Gap 10 meq/L (5-15); Aspartate Aminotransferase 47 U/L (15-37); Blood Urea Nitrogen 8 mg/dL (7-18); Calcium 8.5 mg/dL (8.5-10.1); Carbon Dioxide 24.4 meq/L (21.0-32.0); Chloride 104 meq/L (98-107); Glomerular Filtration Rate 65 mL/min (>89); Glucose,Random 187 mg/dL (74-106); Magnesium 1.7 mg/dL (1.5-2.5); Potassium 3.4 meq/L (3.5-5.1); Sodium 138 meq/L (136-145)
[2018-06-26 09:47] LABS: Alanine Aminotransferase 33 U/L (12-78)
[2018-06-26 09:51] LABS: Alkaline Phosphatase 108 U/L (45-117); Total Protein 6.9 g/dL (6.4-8.2)
[2018-06-26] MEDS ORDERED: Vancomycin Consult Pharmacy OTHER PRN (12:11)
--- NOTE | 2018-06-26 12:28 | P.HP ---
History of Present Illness Primary Care Physician: No Primary Care Physician Chief Complaint: Altered mental status change History of Present Illness: 78-year-old male with no significant past medical history was brought to the ED by EMS for evaluation of altered mental status change and possible seizure-like activity. Patient is a very poor historian and information is obtained by reviewing ED chart report. Apparently, when EMS was called, patient was postictal and unresponsive abnormal shaking movements for several minutes patient has no known history of seizure disorder. Abnormal lab includes elevated WBC. Patient was tachycardic with a temp of 99.8 on admission. Patient denies any chest pain or shortness of breath. 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 - Medical History Medical History: Medical History (Last Reviewed 06/26/18 @ 09:18 by Viky Perry MD) HTN (hypertension) - Surgical History Surgical History: Surgical History (Last Reviewed 06/26/18 @ 09:18 by Viky Perry MD) H/O shoulder surgery - Family History Family History: Family History (Last Updated 06/26/18 @ 12:32 by Walker Lezama MD) Other No history of heart disease - Tobacco History Second Hand Smoke Exposure: No Smoking Status: Former smoker - Alcohol History How Often Do You Have a Drink Containing Alcohol: 4 or more times a week - Substance Use History Substance History: No History of Abuse - Travel History Recent Travel in the [place] Within the Last 8 Weeks: No Recent Travel Out of the Country Within the Last 8 Weeks: No - Immunization History Tetanus Immunization: Unsure Medications and Allergies Active Medications: Active Medications Acetaminophen (Tylenol) 650 mg PO Q4H PRN PRN Reason: Temp > 100.4 Al Hydroxide/Mg Hydroxide (Milk Of Magnesia Liq) 30 ml PO DAILY PRN PRN Reason: SEVERE CONSITIPATION Albuterol (Duoneb Neb (Prn)) 1 ampul NEB Q2HR NEB PRN PRN Reason: SHORTNESS OF BREATH/WHEEZING Enalaprilat (Vasotec Inj) 2.5 mg IV.PUSH Q6H PRN PRN Reason: SBP>160, DBP>90 Vancomycin HCl 1,250 mg/ (Sodium Chloride) 262.5 mls @ 250 mls/hr IV.SIG Q24H TYRONE Piperacillin/Tazobactam/Dextrose (Zosyn 3.375 Gm Premix) 3.375 gm in 50 mls @ 100 mls/hr IV.SIG Q8H TYRONE Lisinopril (Prinivil) 10 mg PO DAILY TYRONE Lorazepam (Ativan Inj) 2 mg IV.PUSH Q10M PRN PRN Reason: SEE LABEL COMMENTS Ondansetron HCl (Zofran Inj) 4 mg IV.PUSH Q6H PRN PRN Reason: NAUSEA Pantoprazole Sodium (Protonix) 40 mg PO DAILY [facility] Pharmacy Profile Note (Vancomycin Consult Pharmacy) 1 each OTHER UNSCH PRN PRN Reason: Pharmacy to dose Sodium Chloride (Ns Flush) 2 ml IV.FLUSH PRN PRN PRN Reason: FLUSH AFTER USING IV ACCESS Allergies Allergy/AdvReac Type Severity Reaction Status Date / Time codeine Allergy Mild n/v Unverified 01/30/17 18:04 Exam Vital signs: Vital Signs 06/26/18 09:10 06/26/18 09:12 06/26/18 10:30 Temperature 99.8 F H Pulse Rate 101 H 91 H Respiratory Rate 21 Blood Pressure 169/79 H 163/78 H Pulse Oximetry 92 L 97 Intake & Output 06/25/18 06/26/18 06/26/18 18:59 06:59 18:59 Intake Total 101 / 101 Balance 101 / 101 Weight 78.471 kg Intake: IV 101 / 101 Thiamine Inj 100 MG In NS Inj 101 / 101 100 ML @ 100 mls/hr IV.SIG ONCE ONE Rx#:[id number] Narrative: GENERAL: NAD SKIN: Warm and dry. HEAD: Atraumatic. Normocephalic. EYES: Pupils equal and round. No scleral icterus. No injection or drainage. ENT: No nasal bleeding or discharge. Mucous membranes pink and moist. NECK: Trachea midline. No JVD. CARDIOVASCULAR: Regular rate and rhythm. RESPIRATORY: No accessory muscle use. Clear to auscultation. Breath sounds equal bilaterally. GASTROINTESTINAL: Abdomen soft, non-tender, nondistended. Hepatic and splenic margins not palpable. MUSCULOSKELETAL: Extremities without clubbing, cyanosis, or edema. No obvious deformities. NEUROLOGICAL: Awake and alert. No obvious cranial nerve deficits. Motor grossly within normal limits. Five out of 5 muscle strength in the arms and legs. Normal speech. PSYCHIATRIC: Appropriate mood and affect; insight and judgment normal. Results - Labs CBC & Chem 7: 06/26/18 09:15 06/26/18 09:15 Labs: Laboratory Results - last 24 hr 06/26/18 06/26/18 06/26/18 09:15 09:15 09:15 WBC 12.4 H RBC 3.89 L Hgb 14.1 Hct 40.9 MCV 105.1 H MCH 36.3 H MCHC 34.5 RDW 13.7 Plt Count 131 L MPV 8.4 Neut % (Auto) 91.9 H Lymph % (Auto) 1.3 L [place] % (Auto) 6.6 Eos % (Auto) 0.0 Baso % (Auto) 0.2 Neut # (Auto) 11.4 H Lymph # (Auto) 0.2 L [place] # (Auto) 0.8 Eos # (Auto) 0.0 Baso # (Auto) 0.0 WBC Differential . Differential Comment Auto diff final Sodium 138 Potassium 3.4 L Chloride 104 Carbon Dioxide 24.4 Anion Gap 10 BUN 8 Creatinine 1.09 Estimated GFR 65 L Random Glucose 187 H Calcium 8.5 Magnesium 1.7 Total Bilirubin 1.2 H AST 47 H ALT 33 Alkaline Phosphatase 108 Ammonia 17 Troponin I Less than 0.02 L Total Protein 6.9 Albumin 3.4 06/26/18 09:15 WBC RBC Hgb Hct MCV MCH MCHC RDW Plt Count MPV Neut % (Auto) Lymph % (Auto) [place] % (Auto) Eos % (Auto) Baso % (Auto) Neut # (Auto) Lymph # (Auto) [place] # (Auto) Eos # (Auto) Baso # (Auto) WBC Differential Differential Comment Sodium Potassium Chloride Carbon Dioxide Anion Gap BUN Creatinine Estimated GFR Random Glucose Calcium Magnesium Total Bilirubin AST ALT Alkaline Phosphatase Ammonia Troponin I Total Protein Albumin 3.4 - Imaging Impressions Head CT 06/26/18 09:09 CONCLUSION: Atrophy, otherwise negative for an acute process. Alexander Bender MD FACR . Cervical Spine CT 06/26/18 09:10 CONCLUSION: Degenerative spondylosis without any significant compromise to the exiting nerve roots or the thecal sac. Caprini VTE Risk Assessment Caprini VTE Risk Assessment: Moderate/High Risk (score >= 2) Caprini Risk Assessment Model: Point Value = 1 Point Value = 2 Point Value = 3 Point Value = 5 Age 41-60 Minor surgery BMI > 25 kg/m2 Swollen legs Varicose veins or History of unexplained or recurrent spontaneous Oral contraceptives or hormone replacement Sepsis (< 1 month) Serious lung disease, including pneumonia (< 1 month) Abnormal pulmonary function Acute myocardial infarction Congestive heart failure (< 1 month) History of inflammatory bowel disease Medical patient at bed rest Age 61-74 Arthroscopic surgery Major open surgery (> 45 min) Laparoscopic surgery (> 45 min) Malignancy Confined to bed (> 72 hours) Immobilizing plaster cast Central venous access Age >= 75 History of VTE Family history of VTE Factor V Leiden Prothrombin [id number] Lupus anticoagulant Anticardiolipin antibodies Elevated serum homocysteine Heparin-induced thrombocytopenia Other congenital or acquired thrombophilia Stroke (< 1 month) Elective arthroplasty Hip, pelvis, or leg fracture Acute spinal cord injury (< 1 month) Prophylaxis Regimen: Total Risk Factor Score Risk Level Prophylaxis Regimen 0-1 Low Early ambulation 2 Moderate Order ONE of the following: *Sequential Compression Device (SCD) *Heparin 5000 units SQ BID 3-4 Higher Order ONE of the following medications: *Heparin 5000 units SQ TID *Enoxaparin/Lovenox 40 mg SQ daily (WT < 150 kg, CrCl > 30 mL/min) *Enoxaparin/Lovenox 30 mg SQ daily (WT < 150 kg, CrCl > 10-29 mL/min) *Enoxaparin/Lovenox 30 mg SQ BID (WT < 150 kg, CrCl > 30 mL/min) AND/OR *Sequential Compression Device (SCD) 5 or more Highest Order ONE of the following medications: *Heparin 5000 units SQ TID (Preferred with Epidurals) *Enoxaparin/Lovenox 40 mg SQ daily (WT < 150 kg, CrCl > 30 mL/min) *Enoxaparin/Lovenox 30 mg SQ daily (WT < 150 kg, CrCl > 10-29 mL/min) *Enoxaparin/Lovenox 30 mg SQ BID (WT < 150 kg, CrCl > 30 mL/min) AND *Sequential Compression Device (SCD) Assessment and Plan - Plan 78-year-old man with Sepsis: HR>90 and WBC>11,00 unknown source Check chest x-ray, UA, lactic acid Will start IV antibiotics including vancomycin and Zosyn pending culture report Encephalopathy Likely metabolic Head CT noted and reviewed by me with finding of Atrophy, otherwise negative for an acute process. Will check brain MRI to rule out possible ischemic stroke Will check carotid ultrasound as well to rule out stenosis Ammonia level 17 within normal limits Leukocytosis Chest x-ray, UA pending and treat accordingly New onset seizure disorder ?/breakthrough seizure-like activity Patient without any known history of seizure disorder Brain MRI pending, CT head noted and reviewed by me otherwise unremarkable Check EEG Will hold on starting patient on any antiplatelet drugs pending evaluation from neurology Ativan as needed Seizure precautions Thrombocytopenia Patient with elevated MCV Will check EtOH level, rule out liver disease Elevated BP Likely undiagnosed hypertension Will start patient on lisinopril 10 mg daily Vasotec as needed DVT prophylaxis: Heparin
--- NOTE | 2018-06-26 12:46 | XR ---
EXAM DATE: 06/26/2018 12:21 PM EST AGE/SEX: 78 years / Male INDICATIONS: Shortness of breath. CLINICAL DATA: This is the patient's initial encounter. Patient reports that signs and symptoms have been present for 1 day and indicates a pain score of Nonresponsive. MEDICAL/SURGICAL HISTORY: None. None. [place] [facility] [place]. . FINDINGS: Lungs are hypoexpanded with minimal linear parenchymal opacity at the left lung base. Cardiomediastin al contours are within normal limits given degree of hyperexpansion. Right humeral fixation hardware is partially imaged. CONCLUSION: 1. Minimal linear parenchymal opacities at the left lung base, likely atelectasis/scarring. Electronically signed by: Mau Pappas MD Board Certified Radiologist 06/26/2018 12:45 PM EST
[2018-06-26] MEDS: Piperacil/Tazo 3.375 GM Premix 3.375 GM/50 ML PIGGYBACK IV.SIG SCH ×2 (13:16→20:48)
--- NOTE | 2018-06-26 13:43 | US ---
EXAM DATE: 06/26/2018 1:31 PM EST AGE/SEX: 78 years / Male INDICATIONS: Syncope and altered mental status changes. CLINICAL DATA: This is the patient's initial encounter. Patient reports that signs and symptoms have been present for 1 day and indicates a pain score of 0/10. MEDICAL/SURGICAL HISTORY: Hypertension. . Shoulder surgery. [place] [facility] [place]. . VELOCITY PARAMETERS: ICA/CCA Ratio: Right 1.6 , Left 1.1 ICA: Right 121.6 cm/sec, Left 83.3 cm/sec CCA: Right 74.0 cm/sec, Left 77.3 cm/sec ECA: Right 65.0 cm/sec, Left 73.4 cm/sec Vertebral: Right 50.7 cm/sec antegrade, Left 48.1 cm/sec antegrade FINDINGS: RIGHT CAROTID: There is no evidence for a hemodynamically significant carotid stenosis. Minimal int imal hyperplasia is present with scattered calcific plaque. LEFT CAROTID: There is no evidence for a hemodynamically significant carotid stenosis. Minimal inti mal hyperplasia is present with scattered calcific plaque. Flow is antegrade in both vertebral arteries. There are no ancillary masses or adenopathy. CONCLUSION: Negative examination for a hemodynamically significant carotid stenosis. Alexander Bender MD FACR Electronically signed by: Alexander Bender MD Board Certified Radiologist 06/26/2018 1:41 PM EST
[2018-06-26] MEDS ORDERED: Vancomycin Inj 1,250 MG in Sodium Chlor 0.9% Inj 250 ML IV.SIG SCH (14:00)
--- NOTE | 2018-06-26 14:43 | MR ---
EXAM DATE: 06/26/2018 2:37 PM EST AGE/SEX: 78 years / Male INDICATIONS: Seizures. CLINICAL DATA: This is the patient's subsequent encounter. Patient reports that signs and symptoms h ave been present for 2 days and indicates a pain score of 3/10. MEDICAL/SURGICAL HISTORY: Hypertension. . right shoulder surgery, left elbow surgery COMPARISON: No prior exams available for comparison. TECHNIQUE: Multiplanar, multisequence examination of the brain was performed without contrast. FINDINGS: Cerebrum: There is moderate central and cortical atrophy with dilatation of the ventricular and sulc al spaces. Minimal periventricular white matter changes are evident. Temporal lobes are symmetric but atrophic. There is no parenchymal hemorrhage. There are no significant extra-axial fluid collections appreciate d. Posterior fossa is unremarkable midline fourth ventricle. Portable present. Sinuses visualized are unremarkable. CONCLUSION: 1. Marked central and cortical atrophy otherwise negative Electronically signed by: Alexander Bender MD Board Certified Radiologist 06/26/2018 2:41 PM EST
[2018-06-26 16:15] LABS: Bilirubin,Urine Negative (Negative); Clarity,Urine Clear (Clear); Color,Urine Yellow (Yellw/Straw); Glucose,Urine (UA) 50 mg/dL (Negative); Leukocyte Esterase,Urine Negative (Negative); Mucus,Urine Few /lpf (Occasional); Nitrite,Urine Negative (Negative); Specific Gravity,Urine 1.014 (1.002-1.035)
[2018-06-26] MEDS: Acetaminophen 325 MG Tablet PO PRN (17:47)
--- NOTE | 2018-06-26 18:41 | ECG ---
Date Performed: 06/26/2018 Time Performed: 09:43:39 PTAGE: 78 years EKG: Sinus rhythm WITH FIRST DEGREE AV BLOCK WITH OCCASIONAL VENTRICULAR PREMATURE COMPLEXES NONSPECIFIC T-WAVE ABNORM ALITY ABNORMAL ECG PREVIOUS TRACING : 09/22/2017 09.21 Compared to previous tracing, a fib no longer present DOCTOR: Caren Santos Interpretating Date/Time 06/26/2018 18:40:09
--- NOTE | 2018-06-26 22:56 | MG ---
cc: Fito Bradley MD FINDINGS: High frequency myogenic artifact in the frontal channels. Posterior rhythm demonstrates 5-7 Hz activity, 10-30 microvolts followed by progressive slowing and bursts of 2-3 Hz delta activity. Sharp wave at T3 P3 region, epoch 80. stage I and stage II sleep, followed by wakefulness. Recurrent artifact. Single-lead EKG showing sinus rhythm. Reduced driving with photic stimulation. INTERPRETATION: Mild to moderate amount of artifact occurring. Mild nonspecific changes as noted above. Otherwise stable, awake and sleep electroencephalogram. Could consider repeat EEG if clinically indicated. MD FELICIA Penn/igor/ , 09:27 PM , 09:31 PM
--- NOTE | 2018-06-26 22:58 | MB ---
cc: Eric Fitzgerald MD, PhD DATE: 06/26/2018 REASON FOR CONSULTATION: Seizure. HISTORY OF PRESENT ILLNESS: This is a 78-year-old man who came in with alteration in mental status, possible seizure. EMS arrived, he appeared to be postictal with some shaking movements. Apparently, has no known history of seizures. PAST MEDICAL HISTORY: History of hypertension. SOCIAL HISTORY: Denies recent alcohol use or other drug abuse. CURRENT MEDICATIONS: 1. Vasotec p.r.n. 2. Prinivil. 3. Ativan p.r.n. 4. Protonix 40 mg daily. 5. Zofran. 6. Piperacillin 7. Vancomycin. NEUROLOGIC EXAMINATION: VITAL SIGNS: His blood pressure is 150/60/73, pulse 85, temperature 98.6 degrees. HIGHER CORTICAL FUNCTION: He is alert, oriented x 2. He has mild confusion. Follows simple commands. CRANIAL NERVES: Intact. MOTOR EXAM: Normal with no focal deficit. DIAGNOSTIC DATA: CT of the brain, there is atrophy and no acute change present. MRI brain shows atrophy, otherwise negative. Cervical spine CT, spondylosis, but no fracture. Carotid ultrasound is negative. LABORATORY DATA: White count 12,400, hemoglobin 14, hematocrit 40.9%, platelet count 131,000. Sodium 138, potassium 3.4, chloride 104, CO2 24, BUN is 8, creatinine 1.09, glucose 187, AST 47, ALT 33. IMPRESSION: Possible seizure with postictal state. He still has some confusion, which may be postictal. RECOMMENDATION: We will get an electroencephalogram. Would not recommend any anticonvulsants, unless the electroencephalogram is positive for epileptiform discharges. Continue to monitor his mental status as well. If this is postictal, should show signs of improvement. Eric Fitzgerald MD, PhD JOVANI/igor , 10:36 PM , 10:42 PM
[2018-06-27] MEDS: Piperacil/Tazo 3.375 GM Premix 3.375 GM/50 ML PIGGYBACK IV.SIG SCH (05:14)
[2018-06-27 07:34] LABS: Baso % (Auto) 0.3 % (0.0-2.0); Eos % (Auto) 0.3 % (0.0-4.0); Hematocrit 39.7 % (39.0-51.0); Hemoglobin 13.6 gm/dL (13.0-17.0); Lymph # (Auto) 0.7 th/mm3 (1.0-4.8); Lymph % (Auto) 10.5 % (9.0-44.0); Mean Corpuscular HGB Conc 34.3 % (32.0-36.0); Mean Corpuscular Hemoglobin 36.8 pg (27.0-34.0); Mean Corpuscular Volume 107.2 fL (80.0-100.0); Mono # (Auto) 0.6 th/mm3 (0.0-0.9); Mono % (Auto) 9.7 % (0.0-8.0); Neut % (Auto) 79.2 % (16.0-70.0); Platelet Count 84 th/mm3 (150-450); Red Cell Distribution Width 13.9 % (11.6-17.2); White Blood Count 6.3 th/mm3 (4.0-11.0)
[2018-06-27 07:51] LABS: Anion Gap 8 meq/L (5-15); Aspartate Aminotransferase 33 U/L (15-37); Blood Urea Nitrogen 8 mg/dL (7-18); Calcium 8.3 mg/dL (8.5-10.1); Carbon Dioxide 26.5 meq/L (21.0-32.0); Chloride 105 meq/L (98-107); Glomerular Filtration Rate 84 mL/min (>89); Glucose,Random 95 mg/dL (74-106); Potassium 3.1 meq/L (3.5-5.1); Sodium 139 meq/L (136-145)
[2018-06-27 07:55] LABS: Alanine Aminotransferase 25 U/L (12-78); Alkaline Phosphatase 80 U/L (45-117); Total Protein 6.2 g/dL (6.4-8.2)
[2018-06-27] MEDS: Acetaminophen 325 MG Tablet PO PRN (08:05)
[2018-06-27] MEDS: Lisinopril 10 MG Tablet PO SCH (08:05)
[2018-06-27 08:37] LABS: Platelet Morphology Normal (Normal)
--- NOTE | 2018-06-27 09:42 | P.DCO ---
- Diagnosis (1) Seizure Status: Acute - Physical Therapy Order: Evaluate and treat - Home Health Nursing Order: Medical education, Signs/symptoms of disease process - Case Management Consult Case Management Consult-Home Health: Yes - Certification I have seen patient Alexander Samaniego on 06/27/18. My clinical findings support the need for the requested home health care services because: Deconditioned with increased weakness I certify that my clinical findings support that this patient is homebound because: Poor cardiac reserve
--- NOTE | 2018-06-27 09:50 | P.PN ---
Subjective Interval history: Follow-up postictal state/encephalopathy/questionable sepsis June 27, 2018-patient seen and examined, alert and oriented x3. No reported activity or seizure-like overnight. Afebrile and denies any chest pain. Physical Exam Vital signs: Vital Signs 06/26/18 10:30 06/26/18 16:02 06/26/18 20:00 Temperature 98.6 F Pulse Rate 91 H 85 79 Respiratory Rate 20 20 Blood Pressure 163/78 H 152/73 H 130/71 Pulse Oximetry 94 L 96 06/26/18 23:51 06/27/18 04:00 06/27/18 04:07 Temperature 98 F 99 F Pulse Rate 83 76 Respiratory Rate 20 20 Blood Pressure 124/63 131/72 Pulse Oximetry 96 93 L 93 L 06/27/18 08:00 Temperature 99.5 F Pulse Rate 76 Respiratory Rate 18 Blood Pressure 147/73 H Pulse Oximetry 93 L Intake & Output 06/26/18 06/27/18 06/27/18 18:59 06:59 18:59 Intake Total 1163.5 / 1163.5 340 / 340 Balance 1163.5 / 1163.5 340 / 340 Weight 78.471 kg Intake: IV 413.5 / 413.5 100 / 100 Zosyn 3.375 GM Premix 3.375 gm 50 / 50 100 / 100 In 50 ml @ 100 mls/hr IV.SIG Q8H [facility] Rx#:[id number] Thiamine Inj 100 MG In NS Inj 101 / 101 100 ML @ 100 mls/hr IV.SIG ONCE ONE Rx#:[id number] Vancomycin Inj 1,250 MG In NS 262.5 / 262.5 Inj 250 ML @ 262.5 mls/hr IV. SIG Q24H [facility] Rx#:[id number] Oral 750 / 750 240 / 240 Narrative: GENERAL: NAD SKIN: Warm and dry. HEAD: Atraumatic. Normocephalic. EYES: Pupils equal and round. No scleral icterus. No injection or drainage. ENT: No nasal bleeding or discharge. Mucous membranes pink and moist. NECK: Trachea midline. No JVD. CARDIOVASCULAR: Regular rate and rhythm. RESPIRATORY: No accessory muscle use. Clear to auscultation. Breath sounds equal bilaterally. GASTROINTESTINAL: Abdomen soft, non-tender, nondistended. Hepatic and splenic margins not palpable. MUSCULOSKELETAL: Extremities without clubbing, cyanosis, or edema. No obvious deformities. NEUROLOGICAL: Awake and alert. No obvious cranial nerve deficits. Motor grossly within normal limits. Five out of 5 muscle strength in the arms and legs. Normal speech. PSYCHIATRIC: Appropriate mood and affect; insight and judgment normal. Results - Labs CBC & Chem 7: 06/27/18 07:11 06/27/18 07:11 Laboratory Results - last 24 hr 06/26/18 06/26/18 06/26/18 09:15 09:15 09:15 WBC RBC Hgb Hct MCV MCH MCHC RDW Plt Count MPV Prelim Diff (Auto) Neut % (Auto) Lymph % (Auto) [place] % (Auto) Eos % (Auto) Baso % (Auto) Neut # (Auto) Lymph # (Auto) [place] # (Auto) Eos # (Auto) Baso # (Auto) WBC Differential Diff Scan Differential Comment Platelet Estimate Platelet Morphology Sodium 138 Potassium 3.4 L Chloride 104 Carbon Dioxide 24.4 Anion Gap 10 BUN 8 Creatinine 1.09 Estimated GFR 65 L Random Glucose 187 H Lactic Acid Calcium 8.5 Magnesium 1.7 Total Bilirubin 1.2 H AST 47 H ALT 33 Alkaline Phosphatase 108 Ammonia 17 Troponin I Less than 0.02 L Total Protein 6.9 Albumin 3.4 3.4 Urine Color Urine Clarity Urine pH Ur Specific [place] Urine Protein Urine Glucose (UA) Urine Ketones Urine Occult Blood Urine Nitrate Urine Bilirubin Urine Urobilinogen Ur Leukocyte Esterase Urine RBC Urine WBC Urine Mucus Micro UA Comment Ur Microscopic Review Urine Culture Comments Serum Alcohol 06/26/18 06/26/18 06/26/18 13:02 13:09 13:43 WBC RBC Hgb Hct MCV MCH MCHC RDW Plt Count MPV Prelim Diff (Auto) Neut % (Auto) Lymph % (Auto) [place] % (Auto) Eos % (Auto) Baso % (Auto) Neut # (Auto) Lymph # (Auto) [place] # (Auto) Eos # (Auto) Baso # (Auto) WBC Differential Diff Scan Differential Comment Platelet Estimate Platelet Morphology Sodium Potassium Chloride Carbon Dioxide Anion Gap BUN Creatinine Estimated GFR Random Glucose Lactic Acid 2.0 Calcium Magnesium Total Bilirubin AST ALT Alkaline Phosphatase Ammonia Troponin I Total Protein Albumin Urine Color Yellow Urine Clarity Clear Urine pH 5.0 Ur Specific [place] 1.014 Urine Protein Negative Urine Glucose (UA) 50 Urine Ketones Trace H Urine Occult Blood Small H Urine Nitrate Negative Urine Bilirubin Negative Urine Urobilinogen Less than 2 Ur Leukocyte Esterase Negative Urine RBC Less than 1 Urine WBC Less than 1 Urine Mucus Few H Micro UA Comment Culture not ind Ur Microscopic Review Not Reportable Urine Culture Comments Culture not ind Serum Alcohol 4 06/27/18 06/27/18 07:11 07:11 WBC 6.3 RBC 3.70 L Hgb 13.6 Hct 39.7 MCV 107.2 H MCH 36.8 H MCHC 34.3 RDW 13.9 Plt Count 84 L D MPV 9.0 Prelim Diff (Auto) Slide review pending Neut % (Auto) 79.2 H Lymph % (Auto) 10.5 [place]lier % (Auto) 9.7 H Eos % (Auto) 0.3 Baso % (Auto) 0.3 Neut # (Auto) 5.0 Lymph # (Auto) 0.7 L [place] # (Auto) 0.6 Eos # (Auto) 0.0 Baso # (Auto) 0.0 WBC Differential . Diff Scan Auto diff confirmed Differential Comment . Platelet Estimate Low L Platelet Morphology Normal Sodium 139 Potassium 3.1 L Chloride 105 Carbon Dioxide 26.5 Anion Gap 8 BUN 8 Creatinine 0.88 Estimated GFR 84 L Random Glucose 95 Lactic Acid Calcium 8.3 L Magnesium Total Bilirubin 1.6 H AST 33 ALT 25 Alkaline Phosphatase 80 Ammonia Troponin I Total Protein 6.2 L D Albumin 3.0 L Urine Color Urine Clarity Urine pH Ur Specific [place] Urine Protein Urine Glucose (UA) Urine Ketones Urine Occult Blood Urine Nitrate Urine Bilirubin Urine Urobilinogen Ur Leukocyte Esterase Urine RBC Urine WBC Urine Mucus Micro UA Comment Ur Microscopic Review Urine Culture Comments Serum Alcohol - Imaging Impressions Carotid Doppler Study 06/26/18 00:00 CONCLUSION: Negative examination for a hemodynamically significant carotid stenosis. Alexander Bender MD FACR Chest X-Ray 06/26/18 00:00 CONCLUSION: 1. Minimal linear parenchymal opacities at the left lung base, likely atelectasis/scarring. Head MRI 06/26/18 00:00 CONCLUSION: 1. Marked central and cortical atrophy otherwise negative Cervical Spine CT 06/26/18 09:10 CONCLUSION: Degenerative spondylosis without any significant compromise to the exiting nerve roots or the thecal sac. Assessment and Plan - Assessment (1) Seizure Code(s): R56.9 - Unspecified convulsions Status: Acute - Plan 78-year-old man with Sepsis: -Resolved Patient was initially started on IV antibiotics as empiric treatment for unknown source of infection however sepsis has resolved therefore will discontinue all antibiotics Encephalopathy-resolved Likely metabolic Head CT with finding of Atrophy, otherwise negative for an acute process. Brain MRI , carotid ultrasound negative Ammonia level 17 within normal limits Leukocytosis Chest x-ray unremarkable, UA negative New onset seizure disorder ?/breakthrough seizure-like activity Patient without any known history of seizure disorder Brain MRI negative, CT head noted and reviewed by me otherwise unremarkable EEG pending Continue to hold on starting patient on any antiepileptic drugs Appreciate input from neurology Ativan as needed Seizure precautions Thrombocytopenia Patient with elevated MCV EtOH level normal Hypertension Currently on lisinopril 10 mg daily Vasotec as needed DVT prophylaxis: Heparin
--- NOTE | 2018-06-27 17:05 | ECHRPT ---
Indication: SYNCOPE CONCLUSIONS Normal left ventricular size. Mild concentric left ventricular hypertrophy. The left ventricular systolic function is normal with an estimated ejection fraction in the range of 60-65%. The left atrial size is moderately dilated. There is a possible redundanrt or ruptured chordae seen in the apical 4 chamber view. Aortic valve sclerosis is present. Trace aortic valve regurgitation. There is trace tricuspid valve regurgitation. The estimated pulmonary arterial pressure is 30.6 mmHg. BP: / HR: Rhythm: Sinus MEASUREMENTS (Male / Female) Normal Values Technical Quality:Technically difficult study 2D ECHO LV Diastolic Diameter PLAX 5.1 cm 4.2 - 5.9 / 3.9 - 5.3 cm LV Systolic Diameter PLAX 3.7 cm IVS Diastolic Thickness 1.3 cm 0.6 - 1.0 / 0.6 - 0.9 cm LVPW Diastolic Thickness 1.3 cm 0.6 - 1.0 / 0.6 - 0.9 cm LV Relative Wall Thickness 0.5 RV Internal Dim ED PLAX 2.7 cm LVOT Diameter 2.0 cm Aortic Root Diameter 2.8 cm LA Systolic Diameter LX 5.3 cm 3.0 - 4.0 / 2.7 - 3.8 cm M-MODE AV Cusp Separation MM 2.0 cm DOPPLER AV Peak Velocity 197.0 cm/s AV Peak Gradient 15.5 mmHg AV Mean Gradient 8.0 mmHg AV Velocity Time Integral 38.7 cm LVOT Peak Velocity 88.7 cm/s LVOT Peak Gradient 3.1 mmHg LVOT Velocity Time Integral 13.1 cm AV Area Cont Eq vti 1.1 cm AV Area Cont Eq pk 1.4 cm Mitral E Point Velocity 62.7 cm/s Mitral A Point Velocity 75.0 cm/s Mitral E to A Ratio 0.8 LV E' Lateral Velocity 9.1 cm/s Mitral E to LV E' Lateral Ratio 6.9 LV E' Septal Velocity 6.1 cm/s Mitral E to LV E' Septal Ratio 10.2 TR Peak Velocity 227.0 cm/s TR Peak Gradient 20.6 mmHg Right Atrial Pressure 10.0 mmHg Pulmonary Artery Systolic Pressu 30.6 mmHg Right Ventricular Systolic Press 30.6 mmHg FINDINGS LEFT VENTRICLE Normal left ventricular size. Mild concentric left ventricular hypertrophy. The left ventricular systolic function is normal with an estimated ejection fraction in the range of 60-65%. RIGHT VENTRICLE Normal right ventricular size and systolic function. LEFT ATRIUM The left atrial size is moderately dilated. RIGHT ATRIUM The right atrial size is normal. ATRIAL SEPTUM The interatrial septum not well visualized. AORTA The aortic root and proximal ascending aorta are normal in size on limited imaging. MITRAL VALVE There is an enlongated chordae seen in the apical 4 that appears to be flipping without causing obstruction. AORTIC VALVE Aortic valve sclerosis is present. Trace aortic valve regurgitation. TRICUSPID VALVE There is trace tricuspid valve regurgitation. The estimated pulmonary arterial pressure is 30.6 mmHg. PULMONARY VALVE The pulmonary valve is not well visualized. VESSELS The inferior vena cava was not well visualized. PERICARDIUM No pericardial effusion. Dagoberto Neal MD, FACC, FSCAI (Electronically Signed) Final Date:27 June 2018 17:03
--- NOTE | 2018-06-28 09:42 | P.PN ---
Subjective Interval history: Follow-up postictal state/encephalopathy/questionable sepsis June 27, 2018-patient seen and examined, alert and oriented x3. No reported activity or seizure-like overnight. Afebrile and denies any chest pain. June 28, 2018-patient seen and examined, no seizure-like activity reported times 48 hours patient is looking forward well at home. Physical Exam Vital signs: Vital Signs 06/27/18 12:00 06/27/18 18:00 06/27/18 19:45 Temperature 99.4 F 99.5 F Pulse Rate 62 62 Respiratory Rate 18 18 18 Blood Pressure 117/56 L 110/59 L Pulse Oximetry 94 L 99 06/27/18 20:00 06/27/18 20:13 06/28/18 00:00 Temperature 99.9 F H 98.2 F Pulse Rate 75 70 Respiratory Rate 16 16 Blood Pressure 130/63 112/68 Pulse Oximetry 94 L 94 L 91 L 06/28/18 04:00 06/28/18 08:00 Temperature 99.1 F 97.6 F Pulse Rate 72 69 Respiratory Rate 16 14 Blood Pressure 136/70 125/67 Pulse Oximetry 95 98 Intake & Output 06/27/18 06/28/18 06/28/18 18:59 06:59 18:59 Weight 78.471 kg Other: # Voids 1 Narrative: GENERAL: NAD SKIN: Warm and dry. HEAD: Atraumatic. Normocephalic. EYES: Pupils equal and round. No scleral icterus. No injection or drainage. ENT: No nasal bleeding or discharge. Mucous membranes pink and moist. NECK: Trachea midline. No JVD. CARDIOVASCULAR: Regular rate and rhythm. RESPIRATORY: No accessory muscle use. Clear to auscultation. Breath sounds equal bilaterally. GASTROINTESTINAL: Abdomen soft, non-tender, nondistended. Hepatic and splenic margins not palpable. MUSCULOSKELETAL: Extremities without clubbing, cyanosis, or edema. No obvious deformities. NEUROLOGICAL: Awake and alert. No obvious cranial nerve deficits. Motor grossly within normal limits. Five out of 5 muscle strength in the arms and legs. Normal speech. PSYCHIATRIC: Appropriate mood and affect; insight and judgment normal. Results - Labs CBC & Chem 7: 06/27/18 07:11 06/27/18 07:11 Microbiology 06/26/18 13:02 Blood - Peripheral Aerobic Blood Culture - Preliminary No growth in 1 day 06/26/18 13:02 Blood - Peripheral Anaerobic Blood Culture - Preliminary No growth in 1 day 06/26/18 13:09 Blood - Peripheral Aerobic Blood Culture - Preliminary No growth in 1 day 06/26/18 13:09 Blood - Peripheral Anaerobic Blood Culture - Preliminary No growth in 1 day Assessment and Plan - Assessment (1) Seizure Code(s): R56.9 - Unspecified convulsions Status: Acute - Plan 78-year-old man with Sepsis: -Resolved Patient was initially started on IV antibiotics as empiric treatment for unknown source of infection however sepsis has resolved therefore all antibiotics were discontinued June 27, 2018 Encephalopathy-resolved Likely metabolic Head CT with finding of Atrophy, otherwise negative for an acute process. Brain MRI , carotid ultrasound negative Ammonia level 17 within normal limits Leukocytosis Chest x-ray unremarkable, UA negative New onset seizure disorder ?/breakthrough seizure-like activity Patient without any known history of seizure disorder Brain MRI negative, CT head noted and reviewed by me otherwise unremarkable EEG report unremarkable Continue to hold on starting patient on any antiepileptic drugs Appreciate input from neurology Ativan as needed Seizure precautions Thrombocytopenia Patient with elevated MCV EtOH level normal Hypertension Currently on lisinopril 10 mg daily Vasotec as needed DVT prophylaxis: Heparin
--- NOTE | 2018-06-28 09:46 | P.DS ---
Date of admission: 06/26/18 10:51 Primary care physician: No Primary Care Physician Brief History from admission: 78-year-old male with no significant past medical history was brought to the ED by EMS for evaluation of altered mental status change and possible seizure-like activity. Patient is a very poor historian and information is obtained by reviewing ED chart report. Apparently, when EMS was called, patient was postictal and unresponsive abnormal shaking movements for several minutes patient has no known history of seizure disorder. Abnormal lab includes elevated WBC. Patient was tachycardic with a temp of 99.8 on admission. Patient denies any chest pain or shortness of breath. DS: Diagnosis - Discharge Diagnosis (1) Seizure Status: Acute DS: Summary Hospital Course: Patient admitted for encephalopathy, seizure-like activity and questionable sepsis for which he was started on IV antibiotics and monitoring of cultures. Neurology was consulted and EEG was ordered however patient was not started on any antiepileptic drugs. EEG was unremarkable and patient's conditions resolved including encephalopathy and had no seizure activity throughout hospitalization. All antibiotics were discontinued. He was continued on his treatment for other chronic medical conditions. PT was consulted. DVT and GI prophylaxis were provided. Prior to discharge, patient's conditions improved and vitals remained stable. - Time Spent with Patient Total time spent providing and/or coordinating discharge services: Greater than 30 minutes - Quality: VTE Deep Vein Thrombosis/Pulmonary Embolism Present on Admission: No Exam Vital signs: Vital Signs 06/27/18 12:00 06/27/18 18:00 06/27/18 19:45 Temperature 99.4 F 99.5 F Pulse Rate 62 62 Respiratory Rate 18 18 18 Blood Pressure 117/56 L 110/59 L Pulse Oximetry 94 L 99 06/27/18 20:00 06/27/18 20:13 06/28/18 00:00 Temperature 99.9 F H 98.2 F Pulse Rate 75 70 Respiratory Rate 16 16 Blood Pressure 130/63 112/68 Pulse Oximetry 94 L 94 L 91 L 06/28/18 04:00 06/28/18 08:00 Temperature 99.1 F 97.6 F Pulse Rate 72 69 Respiratory Rate 16 14 Blood Pressure 136/70 125/67 Pulse Oximetry 95 98 Intake & Output 06/27/18 06/28/18 06/28/18 18:59 06:59 18:59 Weight 78.471 kg Other: # Voids 1 Narrative: GENERAL: NAD SKIN: Warm and dry. HEAD: Atraumatic. Normocephalic. EYES: Pupils equal and round. No scleral icterus. No injection or drainage. ENT: No nasal bleeding or discharge. Mucous membranes pink and moist. NECK: Trachea midline. No JVD. CARDIOVASCULAR: Regular rate and rhythm. RESPIRATORY: No accessory muscle use. Clear to auscultation. Breath sounds equal bilaterally. GASTROINTESTINAL: Abdomen soft, non-tender, nondistended. Hepatic and splenic margins not palpable. MUSCULOSKELETAL: Extremities without clubbing, cyanosis, or edema. No obvious deformities. NEUROLOGICAL: Awake and alert. No obvious cranial nerve deficits. Motor grossly within normal limits. Five out of 5 muscle strength in the arms and legs. Normal speech. PSYCHIATRIC: Appropriate mood and affect; insight and judgment normal. Results Procedures completed during hospitalization: None Labs on day of discharge: Preliminary micro results at discharge 06/26/18 13:02 Aerobic Blood Culture - Preliminary Blood - Peripheral No growth in 1 day Anaerobic Blood Culture - Preliminary No growth in 1 day 06/26/18 13:09 Aerobic Blood Culture - Preliminary Blood - Peripheral No growth in 1 day Anaerobic Blood Culture - Preliminary No growth in 1 day - Impressions ITS Impressions Carotid Doppler Study 06/26/18 00:00 CONCLUSION: Negative examination for a hemodynamically significant carotid stenosis. Alexander Bender MD FACR Chest X-Ray 06/26/18 00:00 CONCLUSION: 1. Minimal linear parenchymal opacities at the left lung base, likely atelectasis/scarring. Head MRI 06/26/18 00:00 CONCLUSION: 1. Marked central and cortical atrophy otherwise negative Head CT 06/26/18 09:09 CONCLUSION: Atrophy, otherwise negative for an acute process. Alexander Bender MD FACR . Cervical Spine CT 06/26/18 09:10 CONCLUSION: Degenerative spondylosis without any significant compromise to the exiting nerve roots or the thecal sac. Discharge Plan - Discharge Disposition Patient Disposition: /Home Health Service - Discharge Condition Condition: Stable - Discharge Order Discharge Orders: Discharge Order (Routine); Ordered 06/28/18 Ordered By: Walker Lezama - Physicians Team Primary Care Provider: Primary Care Physici,No Attending Provider: Walker Lezama Other Providers: Eric Fitzgerald MD, PhD ; [employer]
[2018-06-28] MEDS: Lisinopril 10 MG Tablet PO SCH (10:26)
[2018-06-29] MEDS ORDERED: Pharmacy Ordered Lab Info OTHER ONE (13:45)
== END 2018-06-28 14:10 | disposition home health service (06) ==
LOC: NEDA 09:00 → NEPE 09:00 → NEPHCDU 11:51
PROVIDERS: ADMIT Hospitalist; ATTEND Hospitalist
DX: G93.40 Encephalopathy, unspecified; R94.31 Abnormal electrocardiogram [ECG] [EKG]; I10 Essential (primary) hypertension; Z87.891 Personal history of nicotine dependence; D69.6 Thrombocytopenia, unspecified; A41.9 Sepsis, unspecified organism; S00.83XA Contusion of other part of head, initial encounter; G40.909 Epilepsy, unspecified, not intractable, without status epilepticus; M47.9 Spondylosis, unspecified; R53.1 Weakness; S00.532A Contusion of oral cavity, initial encounter
CPT/HCPCS: 70450; 70551; 71010; 71045; 72125; 80053; 80307; 81001; 82040; 82140; 82948; 82962; 83605; 83735; 84484; 85025; 87040; 90765; 90775; 93005; 93306; 93880; 95819; 96365; 96366; 96368; 96375; 97110; 97116; 97163; 99285; G0378; G8987; G8988; J2060; J2543; J3370; J3411; J7050